=== PATIENT | female | born 1950 | race African-American/Black ===

== ENCOUNTER 2018-03-28 10:45 | Inpatient (IN) | payer OTHER, BC ==
[2018-03-25 17:08] VITALS: BMI 34.4
[2018-03-28] MEDS ORDERED: PNEUMOC 13-VAL CONJ-DIP CRM/PF 0.5 ML DISP.SYRIN IM ONE (12:03)
[2018-03-28 12:54] VITALS: BP 106/53; PULSE 55; TEMP 97.5
== END 2018-03-28 17:30 | disposition home or self-care (01) | DRG 552 ==
LOC: JSAMEDAYSX 10:45
PROVIDERS: ADMIT Orthopaedic Surgery Orthopaedic Surgery of the Spine; ATTEND Orthopaedic Surgery Orthopaedic Surgery of the Spine
DX: M51.37 Other intervertebral disc degeneration, lumbosacral region (principal); Z53.8 Procedure and treatment not carried out for other reasons
CPT/HCPCS: 86850; 86900; 86901

== ENCOUNTER 2018-04-04 06:07 | Inpatient (IN) | payer OTHER, BC ==
[2018-04-04] MEDS ORDERED: HEPARIN NA (PORCINE) 5,000 UNITS/ML 1ML VIAL ONE (07:27)
[2018-04-04] MEDS ORDERED: THROMBIN (BOVINE) 5,000 UNIT VIAL TP ONE ×2 (07:27→09:06)
[2018-04-04] MEDS ORDERED: PROPOFOL 20 ML ONE ×17 (07:55→13:08)
[2018-04-04] MEDS ORDERED: fentaNYL CITRATE 250 MCG/5 ML VIAL ONE (07:55)
[2018-04-04] MEDS ORDERED: SUCCINYLCHOLINE CHLORIDE 200 MG/10 ML VIAL ONE (07:56)
[2018-04-04] MEDS ORDERED: KETAMINE HCL 200 MG/20 ML VIAL ONE ×2 (07:56→11:07)
[2018-04-04] MEDS ORDERED: BUPIVACAINE HCL/PF 0.25% (2.5MG/ML) 10 ML VIAL ONE (08:20)
[2018-04-04] MEDS ORDERED: ePHEDrine SULFATE 50 MG/1 ML AMPULE ONE ×3 (08:36→11:51)
[2018-04-04] MEDS ORDERED: VANCOMYCIN 1,000 MG VIAL (RESTRICTED TO ID ONLY) ONE (08:40)
[2018-04-04] MEDS ORDERED: CLINDAMYCIN PHOSPHATE 600 MG/4 ML VIAL ONE ×2 (08:40→17:55)
[2018-04-04] MEDS ORDERED: VANCOMYCIN 1 GRAM (PRE-DOCKED) 1,000 MG/250 ML BAG IVPB ONE (08:45)
[2018-04-04] MEDS ORDERED: BENZOIN TINCTURE SWABSTICK TP ONE ×2 (08:46→13:55)
[2018-04-04] MEDS: CLINDAMYCIN 900 MG PREMIX BAG IVPB ONE ×2 (08:48→18:00)
[2018-04-04] MEDS ORDERED: ROCURONIUM BROMIDE 50 MG/5 ML VIAL ONE (08:54)
[2018-04-04] MEDS ORDERED: BUPIVACAINE LIPOSOME/PF (EXPAREL) 266 MG/20 ML VIAL IJ ONE (09:08)
[2018-04-04] MEDS ORDERED: BUPIVACAINE LIPOSOME/PF (EXPAREL) 266 MG/20 ML VIAL NR ONE (09:08)
[2018-04-04] MEDS ORDERED: DEXAMETHASONE SOD PHOSPHATE 4 MG/1 ML VIAL ONE (09:08)
[2018-04-04] MEDS ORDERED: ONDANSETRON 4 MG/2 ML VIAL ONE (09:08)
[2018-04-04] MEDS ORDERED: BUPIVACAINE HCL/PF 0.25% (2.5MG/ML) 10 ML VIAL IJ ONE (09:36)
[2018-04-04] MEDS ORDERED: GLYCOPYRROLATE 0.2 MG/1 ML VIAL ONE (11:49)
[2018-04-04] MEDS ORDERED: NEOSTIGMINE METHYLSULFATE 0.5 MG/1 ML - 10 ML MDV ONE (11:49)
[2018-04-04] MEDS ORDERED: VASOPRESSIN 20 UNITS/ML VIAL IV ONE (13:00)
--- NOTE | 2018-04-04 13:06 | PN ---
Progress Note (short form) - Note Progress Note: 67F POD #0 s/p: 1. L2, L3, L4, L5, S1 laminectomies 2. L2, L3, L4, L5, S1 osteotomies (facetectomies) 3. L3-L4, L4-L5 Chapman Blank Osteotomies 4. L2-S1 posterior instrumentation 5. L2-S1 posterolateral arthrodesis 6. Partial corpectomy L5 7. L3-L4, L4-L5, L5-S1 posterior lumbar interbody fusion 8. L3-L4, L4-L5, L5-S1 mechanical device 9. Bone allograft 10. Bone autograft 11. Bone marrow aspiration 12. Complex wound closure -Pain control: NO NSAID's. -DVT PPx: -Mechanical only: DK's, SCD's. -Chemical: None. -Incentive spirometry. -PT/OT/Rehab, OOB. -WBAT B/L LE. -NPO until flatus. -Monitor drain output. -Ferrari care; d/c when ambulating. -Post-op Ancef x 2 doses. -No bending, lifting, or twisting for 9-12 months. -Care per ICU & medical hospitalist teams. -Will follow. Junior Hayward MD (Orthopaedic Surgery).
--- NOTE | 2018-04-04 13:08 | OP ---
Operative Note - Note: Operative Date: 04/04/18 Pre-Operative Diagnosis: 1. 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 2. Severe multi-level lumbar spinal stenosis with neurogenic claudication. 3. L4-L5 spondylolisthesis ( anterolisthesis). 5. Sagittal vertical malalignment/imbalance (kyphosis). 6. Neurological decline/weakness. 7. Neurogenic bladder. Operation: 1. L2, L3, L4, L5, S1 laminectomies. 2. L2, L3, L4, L5, S1 osteotomies (facetectomies). 3. L3-L4, L4-L5 Chapman Blank Osteotomies. 4. L2 -S1 posterior instrumentation. 5. L2-S1 posterolateral arthrodesis. 6. L3-L4, L4-L5, L5-S1 posterior lumbar interbody fusion. 7. L5 partial corpectomy. 8. L3-L4, L4-L5, L5-S1 mechanical device. 9. Bone allograft. 10. Bone autograft. 11. Bone marrow aspiration. 12. Complex wound closure Post-Operative Diagnosis: Same as Pre-op Surgeon: Junior Hayward Button Sewer Hand: Krunal Hayward Anesthesiologist/COMPUTER PATTERNMAKER: Cade Terry Anesthesia: General Specimens Removed: L3-L4, L4-L5, L5-S1 discs Estimated Blood Loss (mls): 1,700 Drains & Tubes with Location: 1 x deep HemoVac Blood Volume Replaced (mls): 750 (Cell Saver) Fluid Volume Replaced (mls): 1,650 (Crystalloid) Operative Report Dictated: Yes
[2018-04-04] MEDS ORDERED: ONDANSETRON 4 MG/2 ML VIAL IVPUSH PRN (14:39)
[2018-04-04] MEDS ORDERED: BACITRACIN 15 GM TUBE TOPICAL OINTMENT ONE (14:42)
[2018-04-04] MEDS ORDERED: HYDROmorphone *PCA* 10MG/50ML DISP.SYRIN PCA ONE (15:03)
[2018-04-04] MEDS: ACETAMINOPHEN 1000 MG/100 ML VIAL (NON FORMULARY) IVPB SCH ×2 (15:30→22:55)
[2018-04-04] MEDS ORDERED: ACETAMINOPHEN INJECTION 100 ML IVPB ONE (16:31)
--- NOTE | 2018-04-04 17:45 | OP ---
DATE OF OPERATION: 04/04/2018 SURGEON: Junior Hayward MD CONTRACTING MANAGER: Krunal Hayward MD PREOPERATIVE DIAGNOSES: 1. 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 2. Severe multi-level lumbar spinal stenosis with neurogenic claudication. 3. L4-L5 spondylolisthesis (anterolisthesis). 4. Sagittal vertical malalignment/imbalance (kyphosis). 5. Neurological decline/weakness. POSTOPERATIVE DIAGNOSES: 1. 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 2. Severe multi-level lumbar spinal stenosis with neurogenic claudication. 3. L4-L5 spondylolisthesis (anterolisthesis). 4. Sagittal vertical malalignment/imbalance (kyphosis). 5. Neurological decline/weakness. OPERATION PERFORMED: 1. L2, L3, L4, L5, S1 laminectomies. 2. L2, L3, L4, L5, S1 osteotomies (facetectomies). 3. L3-L4, L4-L5 Chapman Blank Osteotomies. 4. L2-S1 posterior instrumentation. 5. L2-S1 posterolateral arthrodesis. 6. L3-L4, L4-L5, L5-S1 posterior lumbar interbody fusion. 7. L5 partial corpectomy. 8. L3-L4, L4-L5, L5-S1 mechanical device. 9. Bone allograft. 10. Bone autograft. 11. Bone marrow aspiration. 12. Complex wound closure. 13. Intra-operative neuromonitoring. 14. Intra-operative biplanar fluoroscopy. ANESTHESIA: General. ANTIBIOTICS GIVEN: One g of vancomycin prep, 900 mg of clindamycin. OPERATION DETAILS: Patient correctly identified, brought to the operating room, placed prone on Tayo table. Lumbar spine was prepped in routine manner with Betadine scrub solution, wiped with alcohol, DuraPrep applied, a window drape applied, and timeout was called. Imaging was available for intraoperative evaluation. I placed a tilt as possible to keep the hips in full extension, and all bony prominences were appropriately padded. In the prone position, a midline incision was utilized from L1 to S1. The dissection as taken subperiosteally down the spinous process, over the lamina, over the facet joints which were markedly hypertrophic, out to the transverse processes stripping the muscle off the transverse processes exposing the ala of the sacrum both left and right side fully. Once this had been performed, lateral fluoroscopic x-ray verified the levels as well as use of anatomical guidelines. To start the laminectomy was performed by simply resecting the spinous process and lamina using [place] judith as well as [place] rongeurs. Number 4, 5, and 6 [place] rongeurs helped create a central pathway from S1 right up to L2. Once this had been performed and the lamina removed from the midsection of the pars interarticularis to the inferior aspect of each facet joint, osteotomes were utilized to longitudinally incise each of these bony landmarks from L2 right down to S1. This enabled imploding of the inferior facet complex inwards removing it for bone graft purposes and gave easy access to the central canal and recess components of the canal in order to facilitate complete undercutting superior fasciectomy due to, and what was apparent, very severe stenosis. Once this had been performed, the decompression now widely performed and without any complication. The interbody spaces of L3-4, 4-5, and 5-1 were treated in exactly the same manner as follows , the dura was gently retracted, epidural veins were cauterized with bipolar Bovie. Each annulus was subjected to an elliptical annulotomy and then once this was performed, using the appropriate shaving devices, nathaly measures to L3-4 was to size 11 to receive a pressfitted 40 length spacer measuring 12 mm at L4-5 and L5-S1. The identical measurements of a shaving to size 13 and then inserting a 40 length cage at each level sequentially, thus 3 cages in total, these measuring 13 mm with shaving to size 12 thus pressfitting all cages appropriately. Prior to the insertion of each cage, the bone that was harvested from posterior elements were morselized in [place] and packed into the interbody space thus completing anterior arthrodesis at L3-4, 4-5, and 5-1. Once this had been performed, at that point, it must be noted that these components of the operation, the interbody cages were performed by Krunal Hayward MD. He provided from the left hand side of the table resection of each disk and the interbody cages and bone grafting appropriately. The pedicles of L2, 3 , 4, 5, and S1 were then inserted using anatomical guidelines as well as biplane fluoroscopy to help guide the screws. Each screw measured 6 x 45, except the sacrum and these were 7.5 x 40. Each screw was tested with neuromonitoring and found to be completely within the safe parameters appropriately. Once this had been checked , the rods were contoured onto the actual screw heads. The rods measured 110 mm, and the caps for each Capture screw head was utilized to rigidly fix the rods to the actual screws. We utilized the appropriate torque device to tighten the screws appropriately. On Crosslink then applied which measured 50 mm. Once the instrumentation had been completed, and the retractors were once again removed, the tissue was gently retracted off the L2, 3, 4, 5, and S1 interspinous space and the left and right hand sides were packed with bone from the combination of autologous as well as allograft bone appropriately. Bone marrow aspirate concentrate was harvested from the left posterior ileum, that is 120 mL, which was spun down for the CD34 osteoprogenitor & hemotopoetic stem cells and mixed with bone graft appropriately. We utilized strips of demineralized strips accordingly. Wounds were thoroughly lavaged throughout. Retractors were repeatedly released every 15-20 minutes, and muscle gently massaged. At the end of the procedure, fragmented muscle was resected using Kerr scissors and pickups. At the end of this, the neuromonitoring remained stable throughout the procedure, and there were no complications. Closure was as follows, this being a complex wound closure with 4 layers of muscle 1 Vicryl, fascia 1 Vicryl, subcutaneous 1 and 2-0 Vicryl, skin enterocutaneous Monocryl type suture utilized. This was then followed with the appropriate dressing after Steri- Strips had been placed. BLOOD LOSS: Approximately 1700 mL, 750 mL cell saver blood given back to the patient. OVERALL COMMENT: Operation extremely well. No complications. Postoperative x- rays were excellent. MD BRIELLE Cooper/[id number] MTDD
[2018-04-04] MEDS: LACTATED RINGERS SOLUTION 1,000 ML IV SCH (18:01)
[2018-04-04] MEDS ORDERED: HYDROmorphone *PCA* 10MG/50ML DISP.SYRIN PCA SCH (18:45)
--- NOTE | 2018-04-04 19:06 | CONSULT ---
Consultation: REQUESTING PROVIDER: CONSULT REQUEST: We have been asked to medically evaluate this patient for ( specify). HISTORY OF PRESENT ILLNESS: 67 year old pos op day #0 from lumbar laminectomies, osteotomies, asrthrodesis, L5 partial corpectomy, posterior lumbar interbody, bone allograft, autograft and bone marrow aspiration. REVIEW OF SYSTEMS: CONSTITUTIONAL: Absent: fever, chills, diaphoresis, generalized weakness, malaise, loss of appetite, weight change HEENT: Absent: rhinorrhea, nasal congestion, throat pain, throat swelling, difficulty swallowing, mouth swelling, ear pain, eye pain, visual changes CARDIOVASCULAR: Absent: chest pain, syncope, palpitations, irregular heart rate, lightheadedness , peripheral edema RESPIRATORY: Absent: cough, shortness of breath, dyspnea with exertion, orthopnea, wheezing, stridor, hemoptysis GASTROINTESTINAL: Absent: abdominal pain, abdominal distension, nausea, vomiting, diarrhea, constipation, melena, hematochezia GENITOURINARY: Absent: dysuria, frequency, urgency, hesitancy, hematuria, flank pain, genital pain MUSCULOSKELETAL: Absent: myalgia, arthralgia, joint swelling, back pain, neck pain SKIN: Absent: rash, itching, pallor HEMATOLOGIC/IMMUNOLOGIC: Absent: easy bleeding, easy bruising, lymphadenopathy, frequent infections ENDOCRINE: Absent: unexplained weight gain, unexplained weight loss, heat intolerance, cold intolerance NEUROLOGIC: Absent: headache, focal weakness or paresthesias, dizziness, unsteady gait, seizure, mental status changes, bladder or bowel incontinence PSYCHIATRIC: Absent: anxiety, depression, suicidal or homicidal ideation, hallucinations. PHYSICAL EXAMINATION Vital Signs - 24 hr 04/04/18 04/04/18 04/04/18 06:50 14:57 15:10 Temperature 97.8 F 99.4 F Pulse Rate 54 L 62 62 Respiratory 20 24 H 22 H Rate Blood Pressure 115/45 L 152/107 H 81/61 L O2 Sat by Pulse 97 100 100 Oximetry (%) 04/04/18 04/04/18 04/04/18 15:25 15:40 15:55 Temperature Pulse Rate 61 62 62 Respiratory 18 16 16 Rate Blood Pressure 87/52 L 104/56 L 101/59 L O2 Sat by Pulse 100 100 98 Oximetry (%) 04/04/18 04/04/18 04/04/18 16:10 16:25 16:40 Temperature Pulse Rate 60 58 L 57 L Respiratory 18 20 18 Rate Blood Pressure 96/54 L 111/65 116/69 O2 Sat by Pulse 98 100 99 Oximetry (%) 04/04/18 04/04/18 04/04/18 16:55 17:10 17:25 Temperature Pulse Rate 60 62 58 L Respiratory 18 20 18 Rate Blood Pressure 136/70 153/77 163/73 O2 Sat by Pulse 99 100 100 Oximetry (%) 04/04/18 04/04/18 04/04/18 17:40 17:50 18:05 Temperature 97.8 F Pulse Rate 58 L 58 L 58 L Respiratory 18 16 16 Rate Blood Pressure 159/85 160/87 158/85 O2 Sat by Pulse 100 100 Oximetry (%) 04/04/18 18:13 Temperature 97.8 F Pulse Rate 58 L Respiratory 15 Rate Blood Pressure 134/92 O2 Sat by Pulse Oximetry (%) GENERAL: lethargic HEAD: Normal with no signs of trauma. EYES: PERRLA EARS, NOSE, THROAT: dry mucous membranes. NECK: Normal range of motion LUNGS: Breath sounds equal, clear to auscultation bilaterally. No wheezes, and no crackles. No accessory muscle use. HEART: Regular rate and rhythm, normal S1 and S2 without murmur, rub or gallop. UPPER EXTREMITIES: 2+ pulses, warm, well-perfused. No cyanosis. No clubbing. Cap refill <2 seconds. No peripheral edema. LOWER EXTREMITIES: 2+ pulses, warm, well-perfused. No calf tenderness. No peripheral edema. SKIN: Warm, dry, normal turgor, no rashes or lesions noted. Laboratory Results - last 24 hr 04/04/18 06:15 Blood Type A POSITIVE Antibody Screen Negative Active Medications Generic Name Dose Route Start Last Admin Trade Name Freq PRN Reason Stop Dose Admin Acetaminophen 1,000 mg 04/04/18 15:00 04/04/18 15:30 Ofirmev Injection - IVPB 04/06/18 07:01 1,000 mg Q8H JULIO Administration Carvedilol 6.25 mg 04/04/18 22:00 Coreg - PO BID JULIO Hydromorphone HCl 0 mg 04/04/18 18:45 Dilaudid Director Trial - PEARL MAKER 04/11/18 18:40 PEARL MAKER JULIO Protocol Lactated Ringer's 1,000 mls @ 125 mls/hr 04/04/18 15:00 04/04/18 18:01 Lactated Ringers Solution IV 0 mls ASDIR JULIO Administration Clindamycin Phosphate 900 mg in 50 mls @ 100 mls/hr 04/04/18 16:45 Cleocin 900 Mg Premix Ivpb - IVPB 04/05/18 05:14 Q6H JULIO Protocol Levothyroxine Sodium 100 mcg 04/05/18 07:00 Synthroid - PO DAILY@0700 JULIO Lisinopril 2.5 mg 04/05/18 10:00 Prinivil PO DAILY JULIO Ondansetron HCl 4 mg 04/04/18 14:39 Zofran Injection IVPUSH Q6H PRN NAUSEA AND/OR VOMITING ASSESSMENT/PLAN: 67 year old pos op day #0 from lumbar laminectomies, osteotomies, asrthrodesis, L5 partial corpectomy, posterior lumbar interbody, bone allograft, autograft and bone marrow aspiration. Pulm - Incentive spirometry ID - Ancef x 2 doses post op F/E/N - NPO until flatus - monitor drain output - christianson to be d/c when ambulating - PT/OT/Rehab Pain control: NO NSAID's DVT PPx: SCDs Dispo: We will continue to follow the patient. Thank you for this consultative opportunity. Visit type - Emergency Visit Emergency Visit: No - New Patient This patient is new to me today: No - Critical Care Critical Care patient: No
[2018-04-04] MEDS: CLINDAMYCIN 900 MG PREMIX IVPB 900 MG/50 ML BAG IVPB SCH ×2 (22:50→22:57)
[2018-04-04] MEDS: CARVEDILOL 6.25 MG TABLET (FP) PO SCH (22:58)
[2018-04-05] MEDS: CLINDAMYCIN 900 MG PREMIX IVPB 900 MG/50 ML BAG IVPB SCH (05:20)
[2018-04-05 06:18] LABS: HEMATOCRIT 34.2 % (32.4-45.2); HEMOGLOBIN 11.3 GM/dL (10.7-15.3); MCH 30.8 pg (25.7-33.7); MCHC 33.1 g/dl (32.0-36.0); MEAN CELL VOLUME 92.9 fl (80-96); PLATELET COUNT 118 K/MM3 (134-434); RBC 3.69 M/mm3 (3.60-5.2); RDW 13.8 % (11.6-15.6); WHITE BLOOD COUNT 14.2 K/mm3 (4.0-10.0)
[2018-04-05 06:29] LABS: ANION GAP 6 MMOL/L (8-16); BLOOD UREA NITROGEN 14 mg/dL (7-18); CALCIUM 7.2 mg/dL (8.5-10.1); CHLORIDE 109 mmol/L (98-107); CO2 22 mmol/L (21-32); CREATININE 0.9 mg/dL (0.55-1.3); GLUCOSE,RANDOM 112 mg/dL (74-106); POTASSIUM 4.6 mmol/L (3.5-5.1); SODIUM 138 mmol/L (136-145)
[2018-04-05] MEDS: LEVOTHYROXINE NA 100 MCG TABLET (FP) PO SCH (06:35)
[2018-04-05] MEDS: LACTATED RINGERS SOLUTION 1,000 ML IV SCH ×3 (06:36→18:23)
[2018-04-05] MEDS: ACETAMINOPHEN 1000 MG/100 ML VIAL (NON FORMULARY) IVPB SCH ×3 (08:25→22:47)
--- NOTE | 2018-04-05 08:49 | PN ---
Physical Exam: SUBJECTIVE: Patient seen and examined in the ICU. awake, lethargic. speech slow likely secondary to side effects of dilaudid. OBJECTIVE: hypotensive 80s/50s Vital Signs Period Temp Pulse Resp BP Sys/Finney Pulse Ox Last 24 Hr 97.8 F-99.4 F 55-74 14-24 81-163/52-107 2-100 GENERAL: The patient is awake, in no acute distress. HEAD: Normal with no signs of trauma. EYES: PERRL, extraocular movements intact, sclera anicteric, conjunctiva clear. No ptosis. ENT: Ears normal, nares patent, oropharynx clear without exudates, moist mucous membranes. NECK: Trachea midline, full range of motion, supple. LUNGS: Breath sounds equal, clear to auscultation anteriorly HEART: Regular rate and rhythm, 70s ABDOMEN: Soft, nontender, nondistended, normoactive bowel sounds EXTREMITIES: no edema NEUROLOGICAL:slow speech PSYCH: Normal mood, normal affect. SKIN: biateral knee surgical scars Laboratory Results - last 24 hr 04/05/18 04/05/18 05:30 05:30 WBC 14.2 H RBC 3.69 Hgb 11.3 Hct 34.2 MCV 92.9 MCH 30.8 MCHC 33.1 RDW 13.8 Plt Count 118 L MPV 9.0 Sodium 138 Potassium 4.6 Chloride 109 H Carbon Dioxide 22 Anion Gap 6 L BUN 14 Creatinine 0.9 Creat Clearance w eGFR > 60 Random Glucose 112 H Calcium 7.2 L Active Medications Generic Name Dose Route Start Last Admin Trade Name Freq PRN Reason Stop Dose Admin Acetaminophen 1,000 mg 04/04/18 15:00 04/05/18 08:25 Ofirmev Injection - IVPB 04/06/18 07:01 1,000 mg Q8H JULIO Administration Carvedilol 6.25 mg 04/04/18 22:00 04/04/18 22:58 Coreg - PO 6.25 mg BID JULIO Administration Hydromorphone HCl 0 mg 04/04/18 18:45 04/04/18 22:51 Dilaudid Systems Admin - RUBBER BOOTS AND SHOES REPAIRER 04/11/18 18:40 Not Given RUBBER BOOTS AND SHOES REPAIRER JULIO Protocol Lactated Ringer's 1,000 mls @ 125 mls/hr 04/04/18 15:00 04/05/18 06:36 Lactated Ringers Solution IV 125 mls/hr ASDIR JULIO Administration Levothyroxine Sodium 100 mcg 04/05/18 07:00 04/05/18 06:35 Synthroid - PO 100 mcg DAILY@0700 JULIO Administration Lisinopril 2.5 mg 04/05/18 10:00 Prinivil PO DAILY JULIO Ondansetron HCl 4 mg 04/04/18 14:39 Zofran Injection IVPUSH Q6H PRN NAUSEA AND/OR VOMITING ASSESSMENT/PLAN: Patient is a 67 year old patient who is post op day #1 s/p lumbar laminectomies , osteotomies, asrthrodesis, L5 partial corpectomy, posterior lumbar interbody, bone allograft, autograft and bone marrow aspiration. Her past medical history (per her paper chart) is noted as:. hypothyroidism h/o thyroidectomy ischemic cardiomyopathy CHF htn hyperlipidemia COPD Hepatitis C Hepatitis DC with KAREN and stent placement Bilateral knee replacement ----- Surgery: POD #1 s/p lumbar laminectomies, osteotomies, asrthrodesis, L5 partial corpectomy, posterior lumbar interbody, bone allograft, autograft and bone marrow aspiration. Monitor in ICU post op incentive spirometer dilaudid prn per anethesia, consider titrating off to oral when tolerating diet- avoid nsaids chest xray today pending read initiate bowel regimen physical therapy when cleared by surgery d/c christianson when ambulating, then voiding trial monitor drain output, daily cbc fen LR @ 125cc/hr monitor electrolytes npo until flatus Visit type - Emergency Visit Emergency Visit: Yes ED Registration Date: 04/04/18 Care time: The patient presented to the Emergency Department on the above date and was hospitalized for further evaluation of their emergent condition. - New Patient This patient is new to me today: Yes Date on this admission: 04/05/18 - Critical Care Critical Care patient: No - Discharge Referral Referred to [facility] Med P.C.: No
[2018-04-05] MEDS ORDERED: SODIUM CHLORIDE 250 ML IV STA (08:59)
[2018-04-05] MEDS: CARVEDILOL 6.25 MG TABLET (FP) PO SCH ×2 (09:02→22:46)
[2018-04-05] MEDS: LISINOPRIL 5 MG TABLET (FP) PO SCH (09:02)
--- NOTE | 2018-04-05 13:22 | PN ---
Teaching Attending Note Name of Resident: Colette Marlow ATTENDING PHYSICIAN STATEMENT I saw and evaluated the patient. I reviewed the resident's note and discussed the case with the resident. I agree with the resident's findings and plan as documented. SUBJECTIVE: Pt seen and examined in the ICU. Pain controlled. +flatus. No nausea or vomiting. No fevers or chills. Drain with serosanguinous fluid. OBJECTIVE: Vital Signs Period Temp Pulse Resp BP Sys/Finney Pulse Ox Last 24 Hr 97.4 F-99.4 F 55-78 14-24 78-163/52-111 2-100 Intake & Output 04/02/18 04/03/18 04/04/18 04/05/18 23:59 23:59 23:59 23:59 Intake Total 5100 1600 Output Total 2850 1440 Balance 2250 160 Gen: NAD at rest Heart: RRR Lung: decreased breath sounds at the bases Abd: soft, nontender Ext: no edema CBC, BMP 04/05/18 05:30 04/05/18 05:30 Active Medications Acetaminophen (Ofirmev Injection -) 1,000 mg IVPB Q8H [facility] Stop: 04/06/18 07:01 Last Admin: 04/05/18 08:25 Dose: 1,000 mg Carvedilol (Coreg -) 6.25 mg PO BID [facility] Last Admin: 04/05/18 09:02 Dose: Not Given Hydromorphone HCl (Dilaudid Surgical Asst -) 0 mg STAVE MACHINE TENDER STAVE MACHINE TENDER [facility]; Protocol Stop: 04/11/18 18:40 Last Admin: 04/04/18 22:51 Dose: Not Given Lactated Ringer's (Lactated Ringers Solution) 1,000 mls @ 125 mls/hr IV ASDIR [facility] Last Admin: 04/05/18 11:10 Dose: 125 mls/hr Levothyroxine Sodium (Synthroid -) 100 mcg PO DAILY@0700 [facility] Last Admin: 04/05/18 06:35 Dose: 100 mcg Lisinopril (Prinivil) 2.5 mg PO DAILY [facility] Last Admin: 04/05/18 09:02 Dose: Not Given Ondansetron HCl (Zofran Injection) 4 mg IVPUSH Q6H PRN PRN Reason: NAUSEA AND/OR VOMITING ASSESSMENT AND PLAN: Lumbar Spinal Stenosis with Neurogenic Claudication s/p L2-S1 Laminectomies/Osteotomies/PLIF HTN COPD CAD s/p stent CHF Hypothyroidism - pain control - incentive spirometry - bowel regimen - monitor drain output - start clears - d/c christianson when OOB - rehab/PT - DVT prophylaxis
--- NOTE | 2018-04-05 13:58 | PN ---
Physical Exam: SUBJECTIVE: Patient seen and examined Lethargic, confused, able to answer questions OBJECTIVE: Vital Signs Period Temp Pulse Resp BP Sys/Finney Pulse Ox Last 24 Hr 97.4 F-99.4 F 55-78 14-24 78-163/52-111 2-100 GENERAL: The patient is lethargic and confused HEAD: Normal with no signs of trauma. EYES: PERRL, extraocular movements intact, sclera anicteric, conjunctiva clear. No ptosis. ENT: moist mucous membranes. NECK: Trachea midline, full range of motion, supple. LUNGS: Breath sounds equal, clear to auscultation bilaterally, no wheezes, no crackles, no accessory muscle use. HEART: Regular rate and rhythm, S1, S2 without murmur, rub or gallop. ABDOMEN: Soft, nontender, nondistended, normoactive bowel sounds, no guarding, no rebound, no hepatosplenomegaly, no masses. EXTREMITIES: 2+ pulses, warm, well-perfused, no edema. NEUROLOGICAL: lethargic and confused appearing SKIN: Warm, dry, normal turgor, no rashes or lesions noted Laboratory Results - last 24 hr 04/05/18 04/05/18 05:30 05:30 WBC 14.2 H RBC 3.69 Hgb 11.3 Hct 34.2 MCV 92.9 MCH 30.8 MCHC 33.1 RDW 13.8 Plt Count 118 L MPV 9.0 Sodium 138 Potassium 4.6 Chloride 109 H Carbon Dioxide 22 Anion Gap 6 L BUN 14 Creatinine 0.9 Creat Clearance w eGFR > 60 Random Glucose 112 H Calcium 7.2 L Active Medications Generic Name Dose Route Start Last Admin Trade Name Sam PRN Reason Stop Dose Admin Acetaminophen 1,000 mg 04/04/18 15:00 04/05/18 08:25 Ofirmev Injection - IVPB 04/06/18 07:01 1,000 mg Q8H JULIO Administration Carvedilol 6.25 mg 04/04/18 22:00 04/05/18 09:02 Coreg - PO Not Given BID JULIO Hydromorphone HCl 0 mg 04/04/18 18:45 04/04/18 22:51 Dilaudid Cook Fry - DIRECTOR OF MANAGED SERVICES 04/11/18 18:40 Not Given DIRECTOR OF MANAGED SERVICES [facility] Protocol Lactated Ringer's 1,000 mls @ 125 mls/hr 04/04/18 15:00 04/05/18 11:10 Lactated Ringers Solution IV 125 mls/hr ASDIR JULIO Administration Levothyroxine Sodium 100 mcg 04/05/18 07:00 04/05/18 06:35 Synthroid - PO 100 mcg DAILY@0700 JULIO Administration Lisinopril 2.5 mg 04/05/18 10:00 04/05/18 09:02 Prinivil PO Not Given DAILY JULIO Ondansetron HCl 4 mg 04/04/18 14:39 Zofran Injection IVPUSH Q6H PRN NAUSEA AND/OR VOMITING ASSESSMENT/PLAN: 67 year old pos op day #1 from lumbar laminectomies, osteotomies, asrthrodesis, L5 partial corpectomy, posterior lumbar interbody, bone allograft, autograft and bone marrow aspiration. PMHX hypothyroidism, h/o thyroidectomy, ischemic cardiomyopathy, CHF, htn, hyperlipidemia, COPD, Hepatitis C, Hepatitis, [place] with KAREN and stent placement, Bilateral knee replacement Pulm - Incentive spirometry - CXR daily F/E/N - start clear liquid diet advance as tolerated - monitor drain output - christianson to be d/c when ambulating - PT/OT/Rehab Pain control - avoid NSAIDs - Dilaudid DIRECTOR OF MANAGED SERVICES DVT PPx: SCDs Dispo: continue ICU monitoring Visit type - Emergency Visit Emergency Visit: No - New Patient This patient is new to me today: No - Critical Care Critical Care patient: No
--- NOTE | 2018-04-05 15:11 | PN ---
Progress Note (short form) - Note Progress Note: Patient discussed with Dr. Hayward. Recommend holding opioid medications for now. Hold supplemental oxygen and to send ABG for O2 < 93% CBC, CMP, Mg, Phos sent now.
[2018-04-05 16:49] LABS: ARTERIAL BLD GAS O2 SATURATION 87.9 % (90-98.9); ARTERIAL BLOOD GAS BASE EXCESS 0.4 meq/l (-2-2); ARTERIAL BLOOD GAS PCO2 33.4 mmHg (35-45); ARTERIAL BLOOD GAS pH 7.46 (7.35-7.45)
[2018-04-05 16:59] LABS: ALLENS TEST POSITIVE
--- NOTE | 2018-04-05 19:55 | PN ---
Progress Note (short form) - Note Progress Note: Somnolescent Appearsorientated. CVS Stable RESP endobroncial secretion ABD Soft minimal distension. No flatus. Neuro Fully intact MSkeletal Bandage dry Drain in situ LAB Increased WCC PLAN Pain Mx titrated to Po2 PT Mobilize Keep NPO until bowel sounds return Continue IV fluids
[2018-04-06] MEDS ORDERED: ACETAMINOPHEN 325 MG TABLET (FP) PO PRN (02:10)
[2018-04-06] MEDS: oxyCODONE HCL 5 MG TABLET PO PRN ×2 (02:35→10:00)
[2018-04-06] MEDS: ACETAMINOPHEN 1000 MG/100 ML VIAL (NON FORMULARY) IVPB SCH (06:29)
[2018-04-06] MEDS: LEVOTHYROXINE NA 100 MCG TABLET (FP) PO SCH (06:30)
[2018-04-06 06:35] LABS: BASO % 0.2 % (0-2.0); HEMATOCRIT 32.9 % (32.4-45.2); LYMPH % 13.8 % (8-40); MCH 31.2 pg (25.7-33.7); MCHC 33.5 g/dl (32.0-36.0); MEAN CELL VOLUME 93.2 fl (80-96); MEAN PLT VOLUME 9.4 fl (7.5-11.1); MONO % 8.5 % (3.8-10.2); NEUT % 77.5 % (42.8-82.8); PLATELET COUNT 111 K/MM3 (134-434); RBC 3.53 M/mm3 (3.60-5.2); RDW 13.8 % (11.6-15.6); WHITE BLOOD COUNT 17.4 K/mm3 (4.0-10.0)
[2018-04-06 08:06] LABS: ALBUMIN 2.4 g/dl (3.4-5.0); ALK PHOS 72 U/L (45-117); ANION GAP 7 MMOL/L (8-16); BILIRUBIN,TOTAL 1.4 mg/dL (0.2-1); BLOOD UREA NITROGEN 13 mg/dL (7-18); CALCIUM 7.9 mg/dL (8.5-10.1); CHLORIDE 111 mmol/L (98-107); CO2 25 mmol/L (21-32); CREATININE 0.7 mg/dL (0.55-1.3); GLUCOSE,RANDOM 99 mg/dL (74-106); MAGNESIUM 1.8 mg/dL (1.8-2.4); PHOSPHOROUS 2.7 mg/dL (2.5-4.9); POTASSIUM 4.3 mmol/L (3.5-5.1); SGOT/AST 211 U/L (15-37); SGPT/ALT 52 U/L (13-61); SODIUM 143 mmol/L (136-145); TOT PROT 5.7 g/dl (6.4-8.2)
[2018-04-06] MEDS ORDERED: PT OWN MED DRAWER 7, Y5N ONE ×2 (09:52→11:31)
[2018-04-06] MEDS: CARVEDILOL 6.25 MG TABLET (FP) PO SCH ×3 (10:01→21:19)
[2018-04-06] MEDS: POLYETHYLENE GLYCOL 3350 119 GM BTL PO SCH (10:01)
[2018-04-06] MEDS: DOCUSATE SODIUM 100 MG CAPSULE (FP) PO SCH ×3 (10:01→21:19)
[2018-04-06] MEDS: LISINOPRIL 5 MG TABLET (FP) PO SCH ×2 (10:02→11:16)
[2018-04-06] MEDS: NICOTINE 14 MG/24 HOURS TOPICAL PATCH TD SCH (11:32)
--- NOTE | 2018-04-06 12:22 | PN ---
Teaching Attending Note Name of Resident: Colette Marlow ATTENDING PHYSICIAN STATEMENT I saw and evaluated the patient. I reviewed the resident's note and discussed the case with the resident. I agree with the resident's findings and plan as documented. SUBJECTIVE: Pt seen and examined in the ICU. Pain controlled. Tolerating PO. No fevers or chills. No shortness of breath or chest pain. Drain with serosanguinous fluid. OBJECTIVE: Vital Signs Period Temp Pulse Resp BP Sys/Finney Pulse Ox Last 24 Hr 97.4 F-98.9 F 76-99 18-22 95-164/48-98 97-97 Intake & Output 04/03/18 04/04/18 04/05/18 04/06/18 23:59 23:59 23:59 23:59 Intake Total 5100 2850 1350 Output Total 2850 4110 1600 Balance 2250 -1260 -250 Weight 88.768 kg Gen: NAD at rest, drowsy Heart: RRR Lung: decreased breath sounds at the bases Abd: soft, nontender Ext: no edema CBC, BMP 04/06/18 05:30 04/06/18 05:30 Active Medications Acetaminophen (Tylenol -) 325 mg PO Q6H PRN PRN Reason: PAIN LEVEL 1-5 Carvedilol (Coreg -) 6.25 mg PO BID [facility] Last Admin: 04/06/18 11:16 Dose: 6.25 mg Docusate Sodium (Colace -) 100 mg PO TID [facility] Last Admin: 04/06/18 10:01 Dose: 100 mg Hydromorphone HCl (Dilaudid Store Stock Help -) 0 mg REHANGER REHANGER [facility]; Protocol Stop: 04/11/18 18:40 Last Admin: 04/04/18 22:51 Dose: Not Given Lactated Ringer's (Lactated Ringers Solution) 1,000 mls @ 125 mls/hr IV ASDIR [facility] Last Admin: 04/05/18 18:23 Dose: Not Given Levothyroxine Sodium (Synthroid -) 100 mcg PO DAILY@0700 [facility] Last Admin: 04/06/18 06:30 Dose: 100 mcg Lisinopril (Prinivil) 2.5 mg PO DAILY [facility] Last Admin: 04/06/18 11:16 Dose: 2.5 mg Nicotine (Nicoderm Patch -) 14 mg TD DAILY [facility] Last Admin: 04/06/18 11:32 Dose: 14 mg Ondansetron HCl (Zofran Injection) 4 mg IVPUSH Q6H PRN PRN Reason: NAUSEA AND/OR VOMITING Oxycodone HCl (Roxicodone -) 5 mg PO Q6H PRN PRN Reason: PAIN LEVEL 1-5 Last Admin: 04/06/18 10:00 Dose: 5 mg Polyethylene Glycol (Miralax (For Daily Use) -) 17 gm PO DAILY [facility] Last Admin: 04/06/18 10:01 Dose: 17 grams ASSESSMENT AND PLAN: Lumbar Spinal Stenosis with Neurogenic Claudication s/p L2-S1 Laminectomies/Osteotomies/PLIF HTN COPD CAD s/p stent CHF Hypothyroidism - pain control - incentive spirometry - bowel regimen - monitor drain output - advance diet as tolerated - d/c meghan when OOB - rehab/PT - DVT prophylaxis - disposition per surgery
--- NOTE | 2018-04-06 12:58 | PN ---
Physical Exam: SUBJECTIVE: Patient seen and examined slight improvement in confusion. AOx2. OBJECTIVE: Vital Signs Period Temp Pulse Resp BP Sys/Finney Pulse Ox Last 24 Hr 97.4 F-98.9 F 76-99 18-22 95-164/48-98 97-97 GENERAL: The patient is tired but alert HEAD: Normal with no signs of trauma. EYES: PERRLA ENT: moist mucous membranes. NECK: Trachea midline, full range of motion, supple. LUNGS: Breath sounds equal, clear to auscultation bilaterally, no wheezes, no crackles, no accessory muscle use. HEART: Regular rate and rhythm, S1, S2 without murmur, rub or gallop. ABDOMEN: Soft, nontender, nondistended, normoactive bowel sounds, no guarding, no rebound, no hepatosplenomegaly, no masses. EXTREMITIES: 2+ pulses, warm, well-perfused, no edema. NEUROLOGICAL: Cranial nerves II through XII grossly intact. SKIN: Warm, dry, normal turgor, no rashes or lesions noted Laboratory Results - last 24 hr 04/05/18 04/05/18 04/05/18 16:30 17:30 17:30 WBC Cancelled Corrected WBC (auto) Cancelled RBC Cancelled Hgb Cancelled Hct Cancelled MCV Cancelled MCH Cancelled MCHC Cancelled RDW Cancelled Plt Count Cancelled MPV Cancelled Absolute Neuts (auto) Cancelled Neutrophils % Cancelled Lymphocytes % Cancelled Monocytes % Cancelled Eosinophils % Cancelled Basophils % Cancelled Nucleated RBC % Cancelled Platelet Estimate Cancelled Platelet Comment Cancelled Anticoagulation Therapy No Result Required. Puncture Site Left radial ABG pH 7.46 H ABG pCO2 at Pt Temp 33.4 L ABG pO2 at Pt Temp 53.0 L ABG HCO3 23.4 ABG O2 Sat (Measured) 87.9 L ABG O2 Content 12.9 L ABG Base Excess 0.4 Iain Test Positive O2 Delivery Device No Result Required. Oxygen Flow Rate No Vent Mode No Result Required. Vent Rate No Result Required. Mechanical Rate No Result Required. Pressure Support Vent No Result Required. Sodium Cancelled Potassium Cancelled Chloride Cancelled Carbon Dioxide Cancelled Anion Gap Cancelled BUN Cancelled Creatinine Cancelled Creat Clearance w eGFR Cancelled Random Glucose Cancelled Calcium Cancelled Phosphorus Cancelled Magnesium Cancelled Total Bilirubin Cancelled AST Cancelled ALT Cancelled Alkaline Phosphatase Cancelled Total Protein Cancelled Albumin Cancelled 04/06/18 04/06/18 05:30 05:30 WBC 17.4 H Corrected WBC (auto) RBC 3.53 L Hgb 11.0 Hct 32.9 MCV 93.2 MCH 31.2 MCHC 33.5 RDW 13.8 Plt Count 111 L MPV 9.4 Absolute Neuts (auto) 13.5 H Neutrophils % 77.5 Lymphocytes % 13.8 Monocytes % 8.5 Eosinophils % 0.0 Basophils % 0.2 Nucleated RBC % 0 Platelet Estimate Platelet Comment Anticoagulation Therapy Puncture Site ABG pH ABG pCO2 at Pt Temp ABG pO2 at Pt Temp ABG HCO3 ABG O2 Sat (Measured) ABG O2 Content ABG Base Excess Iain Test O2 Delivery Device Oxygen Flow Rate Vent Mode Vent Rate Mechanical Rate Pressure Support Vent Sodium 143 Potassium 4.3 Chloride 111 H Carbon Dioxide 25 Anion Gap 7 L BUN 13 Creatinine 0.7 Creat Clearance w eGFR > 60 Random Glucose 99 Calcium 7.9 L Phosphorus 2.7 Magnesium 1.8 Total Bilirubin 1.4 H AST 211 H ALT 52 Alkaline Phosphatase 72 Total Protein 5.7 L Albumin 2.4 L Active Medications Generic Name Dose Route Start Last Admin Trade Name Freq PRN Reason Stop Dose Admin Acetaminophen 325 mg 04/06/18 02:10 Tylenol - PO Q6H PRN PAIN LEVEL 1-5 Carvedilol 6.25 mg 04/04/18 22:00 04/06/18 11:16 Coreg - PO 6.25 mg BID JULIO Administration Docusate Sodium 100 mg 04/06/18 08:00 04/06/18 10:01 Colace - PO 100 mg TID JULIO Administration Hydromorphone HCl 0 mg 04/04/18 18:45 04/04/18 22:51 Dilaudid Chemical Preparer - SALVAGE SUPERVISOR 04/11/18 18:40 Not Given SALVAGE SUPERVISOR [facility] Protocol Lactated Ringer's 1,000 mls @ 125 mls/hr 04/04/18 15:00 04/05/18 18:23 Lactated Ringers Solution IV Not Given ASDIR [facility] Levothyroxine Sodium 100 mcg 04/05/18 07:00 04/06/18 06:30 Synthroid - PO 100 mcg DAILY@0700 JULIO Administration Lisinopril 2.5 mg 04/05/18 10:00 04/06/18 11:16 Prinivil PO 2.5 mg DAILY JULIO Administration Nicotine 14 mg 04/06/18 10:00 04/06/18 11:32 Nicoderm Patch - TD 14 mg DAILY JULIO Administration Ondansetron HCl 4 mg 04/04/18 14:39 Zofran Injection IVPUSH Q6H PRN NAUSEA AND/OR VOMITING Oxycodone HCl 5 mg 04/06/18 02:10 04/06/18 10:00 Roxicodone - PO 5 mg Q6H PRN Administration PAIN LEVEL 1-5 Polyethylene Glycol 17 gm 04/06/18 10:00 04/06/18 10:01 Miralax (For Daily Use) - PO 17 grams DAILY JULIO Administration ASSESSMENT/PLAN: 67 year old pos op day #1 from lumbar laminectomies, osteotomies, asrthrodesis, L5 partial corpectomy, posterior lumbar interbody, bone allograft, autograft and bone marrow aspiration. PMHX hypothyroidism, h/o thyroidectomy, ischemic cardiomyopathy, CHF, htn, hyperlipidemia, COPD, Hepatitis C, Hepatitis, [place] with KAREN and stent placement, Bilateral knee replacement Pulm - Incentive spirometry - CXR daily F/E/N - start clear liquid diet advance as tolerated - monitor drain output - christianson to be d/c when ambulating - PT/OT/Rehab Pain control - avoid NSAIDs - Dilaudid SALVAGE SUPERVISOR - Oxycodone 5mg Q6H PRN DVT PPx: SCDs Dispo: continue ICU monitoring Visit type - Emergency Visit Emergency Visit: No - New Patient This patient is new to me today: No - Critical Care Critical Care patient: No
--- NOTE | 2018-04-06 14:51 | CONSULT ---
Admitting History and Physical - Primary Care Physician PCP: Junior Hayward - Admission History of Present Illness: Per EMR: 67 year old pos op day #1 from lumbar laminectomies, osteotomies, asrthrodesis, L5 partial corpectomy, posterior lumbar interbody, bone allograft, autograft and bone marrow aspiration. PMHX hypothyroidism, h/o thyroidectomy, ischemic cardiomyopathy, CHF, htn, hyperlipidemia, COPD, Hepatitis C, Hepatitis, [place] with KAREN and stent placement, Bilateral knee replacement Patient with slurring speech and incoherence on reassessment. CLD currently, will do a swallow evaluation and advance diet to full liquids as tolerated. History Source: Patient, Family Member, Medical Record Limitations to Obtaining History: Clinical Condition - Smoking History Smoking history: Current some day smoker Aproximately how many cigarettes per day: 10 - Alcohol/Substance Use Hx Alcohol Use: No History - Admission Reason For Visit: SPINAL STENOSIS - General Mental Status: Awake and Alert (sleepy but arousable), Able to Follow Commands, Intermittently Confused Attention: Distractible Ability to Follow Directions: Good - Hearing Hearing: Functional Speech Evaluation - Communication Primary Language: PALAUAN Oral Expression Ability: Yes: Mild Impairment - Speech Production Able to Make Needs Known: Yes: WNL Intelligibility: Yes: Mildly Impaired - Speech Characteristics Voice Loudness: Normal Voice Pitch: Yes: Normal Voice Phonatory-based Quality: Yes: Normal Speech Pattern: Impaired Speech Clarity: < 100% Nasal Resonance: Hypernasal Articulation: Yes: Imprecise Rate of Speech: Intact - Language/Auditory Comprehension Follows: Yes: 1 Stage Simple Commands Observation: Able to respond to yes/no queries: Yes, Yes/No Confusion: No, Comprehends Conversational Speech: Yes - Language/Verbal Expression Able to Respond to Simple Queries: Yes: WNL Able to Communicate Wants and Needs: Yes: WNL Functional Communication Status: Yes: WNL - Swallow Evaluation/Bedside Assessment Current Nutritional Intake: Clear Liquids Oral Secretions: Yes: WFL Dentition: Yes: Missing Teeth (lower), Dental Appliance Upper Facial Symmetry at Rest: Symmetrical Facial Symmetry on Retraction: Symmetrical Facial Movement: Controlled Pucker Lips: Normal Smile: Normal Lingual Movement: Normal, Symmetric Lingual Movement Characteristics: Normal Bite Reflex: Present Velopharyngeal Movement: Hypernasality (symmetric elevation, incomplete due to lethargy?) Laryngeal Movement: Labored,delay initiation Labial Seal: WFL Oral Prep Time: Increased A-P Transit: Impaired Pocketing: None Timing of Swallow: Delayed Coughing/Throat Clear: No Change in Voice: No Recommendations - Speech Evaluation, Impression/Plan Impression: Post anaesthesia/pain meds etc. A little confused, speech hypernasal. No assymetry upon examination. Swallow overtly intact, however, intermittent sleepiness, hypernasality, confusion post op. No assymetry. - Dysphagia Impressions/Plan Dysphagia Impressions: Mild Impairment, Risk of Aspiration *Silent aspiration: cannot be R/O at bedside Dysphagia Treatment Plan: Small Bites, Chin Tuck/Down, Facilitative Feeding, Safe Rate, Elevate HOB during feed Recommendations: Other (Feed only when fully awake, upright, concentrating on eating/drinking.) - Recommendations Diet Consistency: Other (Full fluids if not medically contraindicated.) Medication Administration: Whole with water Liquids: Thin Liquids
--- NOTE | 2018-04-06 15:51 | PN ---
Physical Exam: SUBJECTIVE: Patient seen and examined at the bedside. daughter at the bedside. OBJECTIVE: episode of confusion overnight, d/c dilaudid and monitor on only oxycodone 5mg. minimize use of any other narcotics or benzos and monitor mental status. consider head ct if mental status does not improve. Vital Signs Period Temp Pulse Resp BP Sys/Finney Pulse Ox Last 24 Hr 97.9 F-98.9 F 78-99 18-22 104-166/69-98 97-97 GENERAL: The patient in no acute distress. HEAD: Normal with no signs of trauma. EYES: PERRL, extraocular movements intact, sclera anicteric, conjunctiva clear. No ptosis. ENT: Ears normal, nares patent, oropharynx clear without exudates, moist mucous membranes. NECK: Trachea midline, full range of motion, supple. LUNGS: Breath sounds equal, clear to auscultation anteriorly HEART: Regular rate and rhythm, 70s ABDOMEN: Soft, nontender, nondistended, normoactive bowel sounds EXTREMITIES: no edema NEUROLOGICAL:slow speech PSYCH: Normal mood, normal affect. SKIN: bilateral knee surgical scars Laboratory Results - last 24 hr 04/05/18 04/05/18 04/05/18 16:30 17:30 17:30 WBC Cancelled Corrected WBC (auto) Cancelled RBC Cancelled Hgb Cancelled Hct Cancelled MCV Cancelled MCH Cancelled MCHC Cancelled RDW Cancelled Plt Count Cancelled MPV Cancelled Absolute Neuts (auto) Cancelled Neutrophils % Cancelled Lymphocytes % Cancelled Monocytes % Cancelled Eosinophils % Cancelled Basophils % Cancelled Nucleated RBC % Cancelled Platelet Estimate Cancelled Platelet Comment Cancelled Anticoagulation Therapy No Result Required. Puncture Site Left radial ABG pH 7.46 H ABG pCO2 at Pt Temp 33.4 L ABG pO2 at Pt Temp 53.0 L ABG HCO3 23.4 ABG O2 Sat (Measured) 87.9 L ABG O2 Content 12.9 L ABG Base Excess 0.4 Iain Test Positive O2 Delivery Device No Result Required. Oxygen Flow Rate No Vent Mode No Result Required. Vent Rate No Result Required. Mechanical Rate No Result Required. Pressure Support Vent No Result Required. Sodium Cancelled Potassium Cancelled Chloride Cancelled Carbon Dioxide Cancelled Anion Gap Cancelled BUN Cancelled Creatinine Cancelled Creat Clearance w eGFR Cancelled Random Glucose Cancelled Calcium Cancelled Phosphorus Cancelled Magnesium Cancelled Total Bilirubin Cancelled AST Cancelled ALT Cancelled Alkaline Phosphatase Cancelled Total Protein Cancelled Albumin Cancelled 04/06/18 04/06/18 05:30 05:30 WBC 17.4 H Corrected WBC (auto) RBC 3.53 L Hgb 11.0 Hct 32.9 MCV 93.2 MCH 31.2 MCHC 33.5 RDW 13.8 Plt Count 111 L MPV 9.4 Absolute Neuts (auto) 13.5 H Neutrophils % 77.5 Lymphocytes % 13.8 Monocytes % 8.5 Eosinophils % 0.0 Basophils % 0.2 Nucleated RBC % 0 Platelet Estimate Platelet Comment Anticoagulation Therapy Puncture Site ABG pH ABG pCO2 at Pt Temp ABG pO2 at Pt Temp ABG HCO3 ABG O2 Sat (Measured) ABG O2 Content ABG Base Excess Iain Test O2 Delivery Device Oxygen Flow Rate Vent Mode Vent Rate Mechanical Rate Pressure Support Vent Sodium 143 Potassium 4.3 Chloride 111 H Carbon Dioxide 25 Anion Gap 7 L BUN 13 Creatinine 0.7 Creat Clearance w eGFR > 60 Random Glucose 99 Calcium 7.9 L Phosphorus 2.7 Magnesium 1.8 Total Bilirubin 1.4 H AST 211 H ALT 52 Alkaline Phosphatase 72 Total Protein 5.7 L Albumin 2.4 L Active Medications Generic Name Dose Route Start Last Admin Trade Name Freq PRN Reason Stop Dose Admin Acetaminophen 325 mg 04/06/18 02:10 Tylenol - PO Q6H PRN PAIN LEVEL 1-5 Carvedilol 6.25 mg 04/04/18 22:00 04/06/18 11:16 Coreg - PO 6.25 mg BID JULIO Administration Docusate Sodium 100 mg 04/06/18 08:00 04/06/18 15:20 Colace - PO 100 mg TID JULIO Administration Hydromorphone HCl 0 mg 04/04/18 18:45 04/04/18 22:51 Dilaudid Food Service Driver - CLIENT DELIVERY SPECIALIST 04/11/18 18:40 Not Given CLIENT DELIVERY SPECIALIST [facility] Protocol Lactated Ringer's 1,000 mls @ 125 mls/hr 04/04/18 15:00 04/05/18 18:23 Lactated Ringers Solution IV Not Given ASDIR JULIO Levothyroxine Sodium 100 mcg 04/05/18 07:00 04/06/18 06:30 Synthroid - PO 100 mcg DAILY@0700 JULIO Administration Lisinopril 2.5 mg 04/05/18 10:00 04/06/18 11:16 Prinivil PO 2.5 mg DAILY JULIO Administration Nicotine 14 mg 04/06/18 10:00 04/06/18 11:32 Nicoderm Patch - TD 14 mg DAILY JULIO Administration Ondansetron HCl 4 mg 04/04/18 14:39 Zofran Injection IVPUSH Q6H PRN NAUSEA AND/OR VOMITING Oxycodone HCl 5 mg 04/06/18 02:10 04/06/18 10:00 Roxicodone - PO 5 mg Q6H PRN Administration PAIN LEVEL 1-5 Polyethylene Glycol 17 gm 04/06/18 10:00 04/06/18 10:01 Miralax (For Daily Use) - PO 17 grams DAILY JULIO Administration ASSESSMENT/PLAN: Patient is a 67 year old patient who is post op day #2 s/p lumbar laminectomies , osteotomies, asrthrodesis, L5 partial corpectomy, posterior lumbar interbody, bone allograft, autograft and bone marrow aspiration. Her past medical history (per her paper chart) is noted as:. hypothyroidism h/o thyroidectomy ischemic cardiomyopathy CHF htn hyperlipidemia COPD Hepatitis C Hepatitis [place] with KAREN and stent placement Bilateral knee replacement ----- Surgery: POD #2 s/p lumbar laminectomies, osteotomies, asrthrodesis, L5 partial corpectomy, posterior lumbar interbody, bone allograft, autograft and bone marrow aspiration. Monitor in ICU post op. vitals signs improved incentive spirometer will d/c dilaudid as patient is on oxycodone chest xray noted initiate bowel regimen physical therapy when cleared by surgery d/c christianson when ambulating, then voiding trial monitor drain output, daily cbc Psyche AMS likely secondary to narcotic medications episodes of confusion vs delirium overnight will order head ct fen LR @ 125cc/hr monitor electrolytes full liquid diet Visit type - Emergency Visit Emergency Visit: Yes ED Registration Date: 04/04/18 Care time: The patient presented to the Emergency Department on the above date and was hospitalized for further evaluation of their emergent condition. - New Patient This patient is new to me today: No - Critical Care Critical Care patient: Yes Total Critical Care Time (in minutes): 45 Critical Care Statement: The care of this patient involved high complexity decision making to prevent further life threatening deterioration of the patient 's condition and/or to evaluate & treat vital organ system(s) failure or risk of failure. - Discharge Referral Referred to [facility] Med P.C.: No
[2018-04-06] MEDS: LACTATED RINGERS SOLUTION 1,000 ML IV SCH (18:18)
[2018-04-06 20:37] LABS: URINE APPEARANCE CLEAR; URINE BILIRUBIN NEGATIVE (<2.0 mg/dL); URINE COLOR LTYELLOW; URINE GLUCOSE (UA) NEGATIVE (NEGATIVE); URINE KETONE NEGATIVE (NEGATIVE); URINE LEUK ESTERASE NEGATIVE (NEGATIVE); URINE NITRITE NEGATIVE (NEGATIVE); URINE PROTEIN NEGATIVE (NEGATIVE); URINE UROBILINOGEN NEGATIVE mg/dL (0.2-1.0)
[2018-04-07] MEDS: DOCUSATE SODIUM 100 MG CAPSULE (FP) PO SCH ×3 (05:50→21:15)
[2018-04-07 06:07] LABS: BASO % 0.3 % (0-2.0); EOS % 0.2 % (0-4.5); HEMATOCRIT 31.3 % (32.4-45.2); HEMOGLOBIN 10.3 GM/dL (10.7-15.3); LYMPH % 19.1 % (8-40); MCH 30.7 pg (25.7-33.7); MCHC 32.8 g/dl (32.0-36.0); MEAN CELL VOLUME 93.9 fl (80-96); MEAN PLT VOLUME 9.3 fl (7.5-11.1); MONO % 11.2 % (3.8-10.2); NEUT % 69.2 % (42.8-82.8); PLATELET COUNT 122 K/MM3 (134-434); RBC 3.33 M/mm3 (3.60-5.2); RDW 13.9 % (11.6-15.6); WHITE BLOOD COUNT 14.9 K/mm3 (4.0-10.0)
[2018-04-07] MEDS: LEVOTHYROXINE NA 100 MCG TABLET (FP) PO SCH (06:43)
[2018-04-07 06:49] LABS: ALBUMIN 2.3 g/dl (3.4-5.0); ALK PHOS 62 U/L (45-117); ANION GAP 7 MMOL/L (8-16); BILIRUBIN,TOTAL 1.2 mg/dL (0.2-1); BLOOD UREA NITROGEN 9 mg/dL (7-18); CALCIUM 7.9 mg/dL (8.5-10.1); CHLORIDE 110 mmol/L (98-107); CO2 24 mmol/L (21-32); CREATININE 0.6 mg/dL (0.55-1.3); GLUCOSE,RANDOM 108 mg/dL (74-106); MAGNESIUM 1.9 mg/dL (1.8-2.4); PHOSPHOROUS 3.2 mg/dL (2.5-4.9); POTASSIUM 4.1 mmol/L (3.5-5.1); SGOT/AST 105 U/L (15-37); SGPT/ALT 42 U/L (13-61); SODIUM 142 mmol/L (136-145); TOT PROT 5.7 g/dl (6.4-8.2)
[2018-04-07] MEDS: ACETAMINOPHEN 1000 MG/100 ML VIAL (NON FORMULARY) IVPB PRN ×2 (09:15→16:27)
--- NOTE | 2018-04-07 09:26 | PN ---
Progress Note (short form) - Note Progress Note: asked by Dr Hayward to pull Hemavac drain on patient. Hemavac drain removed with tip fully intact and scant venkatesh bloody drainage in vac. Drain site clean and dry with no active bleeding. Dressing c/d/i. Patient tolerated the procedure.
[2018-04-07] MEDS ORDERED: PT OWN MED DRAWER 7, Y5N ONE (09:48)
[2018-04-07] MEDS: CARVEDILOL 6.25 MG TABLET (FP) PO SCH ×2 (10:09→21:15)
[2018-04-07] MEDS: NICOTINE 14 MG/24 HOURS TOPICAL PATCH TD SCH (10:09)
[2018-04-07] MEDS: LISINOPRIL 5 MG TABLET (FP) PO SCH (10:09)
[2018-04-07] MEDS: POLYETHYLENE GLYCOL 3350 119 GM BTL PO SCH (10:46)
[2018-04-07] MEDS ORDERED: HEMOQUE TEST 1 EACH EACH ONE (11:12)
--- NOTE | 2018-04-07 11:16 | PN ---
Progress Note, COMMISSION AGENT [employer] - Note Progress Note: On full fluids with reported good tolerance. Selected Entries 04/06/18 04/06/18 04/06/18 02:00 10:00 10:27 Breakfast 100% Lunch Supper Temperature 98.9 F 98 F 04/06/18 04/06/18 04/06/18 13:38 16:00 18:00 Breakfast Lunch 75% Supper Temperature 98.2 F 99 F 04/06/18 04/06/18 04/07/18 19:36 22:00 02:00 Breakfast Lunch Supper 25% Temperature 98.2 F 98.4 F 04/07/18 04/07/18 04/07/18 06:00 08:00 08:51 Breakfast 50% Lunch Supper Temperature 98.1 F 98.3 F Laboratory Tests 04/05/18 04/06/18 04/07/18 05:30 05:30 05:30 WBC 14.2 H 17.4 H 14.9 H No longer on pain killers except Tylenol. Verbal, Oriented, occasional errors eg [facility]. Speech improved significantly, still with some articulatory imprecision. Seems intermittently confused to me. Daughter reports she is better, not at baseline.
--- NOTE | 2018-04-07 11:39 | PN ---
Physical Exam: SUBJECTIVE: Patient seen and examined Patient with improved mentation and speech. Drain removed this AM OBJECTIVE: Vital Signs Period Temp Pulse Resp BP Sys/Finney Pulse Ox Last 24 Hr 98.1 F-99 F 79-95 15-30 116-173/77-97 97-97 GENERAL: The patient is awake, alert, and fully oriented, in no acute distress. HEAD: Normal with no signs of trauma. EYES: PERRLA, extraocular movements intact, ENT: moist mucous membranes. NECK: Trachea midline, full range of motion, supple. LUNGS: Breath sounds equal, clear to auscultation bilaterally, no wheezes, no crackles, no accessory muscle use. HEART: Regular rate and rhythm, S1, S2 without murmur, rub or gallop. ABDOMEN: Soft, nontender, nondistended, normoactive bowel sounds, no guarding, no rebound, no hepatosplenomegaly, no masses. EXTREMITIES: 2+ pulses, warm, well-perfused, no edema. NEUROLOGICAL: AOx3 SKIN: Warm, dry, normal turgor, no rashes or lesions noted Laboratory Results - last 24 hr 04/06/18 04/07/18 04/07/18 19:26 05:30 05:30 WBC 14.9 H RBC 3.33 L Hgb 10.3 L Hct 31.3 L MCV 93.9 MCH 30.7 MCHC 32.8 RDW 13.9 Plt Count 122 L MPV 9.3 Absolute Neuts (auto) 10.3 H Neutrophils % 69.2 Lymphocytes % 19.1 D Monocytes % 11.2 H Eosinophils % 0.2 D Basophils % 0.3 Nucleated RBC % 0 Sodium 142 Potassium 4.1 Chloride 110 H Carbon Dioxide 24 Anion Gap 7 L BUN 9 Creatinine 0.6 Creat Clearance w eGFR > 60 Random Glucose 108 H Calcium 7.9 L Phosphorus 3.2 Magnesium 1.9 Total Bilirubin 1.2 H AST 105 H ALT 42 Alkaline Phosphatase 62 Total Protein 5.7 L Albumin 2.3 L Urine Color Ltyellow Urine Appearance Clear Urine pH 8.0 Ur Specific Ruso 1.009 L Urine Protein Negative Urine Glucose (UA) Negative Urine Ketones Negative Urine Blood Negative Urine Nitrite Negative Urine Bilirubin Negative Urine Urobilinogen Negative Ur Leukocyte Esterase Negative Active Medications Generic Name Dose Route Start Last Admin Trade Name Freq PRN Reason Stop Dose Admin Acetaminophen 325 mg 04/06/18 02:10 04/06/18 21:18 Tylenol - PO 325 mg Q6H PRN Administration PAIN LEVEL 1-5 Acetaminophen 1,000 mg 04/07/18 09:00 04/07/18 09:15 Ofirmev Injection - IVPB 1,000 mg Q6H PRN Administration PAIN Carvedilol 6.25 mg 04/04/18 22:00 04/07/18 10:09 Coreg - PO 6.25 mg BID JULIO Administration Docusate Sodium 100 mg 04/06/18 08:00 04/07/18 05:50 Colace - PO 100 mg TID JULIO Administration Lactated Ringer's 1,000 mls @ 125 mls/hr 04/04/18 15:00 04/06/18 18:18 Lactated Ringers Solution IV Not Given ASDIR JULIO Levothyroxine Sodium 100 mcg 04/05/18 07:00 04/07/18 06:43 Synthroid - PO 100 mcg DAILY@0700 JULIO Administration Lisinopril 2.5 mg 04/05/18 10:00 04/07/18 10:09 Prinivil PO 2.5 mg DAILY JUILO Administration Nicotine 14 mg 04/06/18 10:00 04/07/18 10:09 Nicoderm Patch - TD 14 mg DAILY JULIO Administration Ondansetron HCl 4 mg 04/04/18 14:39 Zofran Injection IVPUSH Q6H PRN NAUSEA AND/OR VOMITING Oxycodone HCl 5 mg 04/06/18 02:10 04/06/18 10:00 Roxicodone - PO 5 mg Q6H PRN Administration PAIN LEVEL 1-5 Polyethylene Glycol 17 gm 04/06/18 10:00 04/07/18 10:46 Miralax (For Daily Use) - PO 17 grams DAILY JULIO Administration ASSESSMENT/PLAN: 67 year old pos op day #3 from lumbar laminectomies, osteotomies, asrthrodesis, L5 partial corpectomy, posterior lumbar interbody, bone allograft, autograft and bone marrow aspiration. PMHX hypothyroidism, h/o thyroidectomy, ischemic cardiomyopathy, CHF, htn, hyperlipidemia, COPD, Hepatitis C, Hepatitis, [place] with KAREN and stent placement, Bilateral knee replacement Pulm - Incentive spirometry - CXR daily F/E/N - full liquid diet advance as tolerated - drain d/c - christianson to be d/c when ambulating - PT/OT/Rehab Pain control - avoid NSAIDs - Tylenol PRN DVT PPx: SCDs Dispo: transfer Visit type - Emergency Visit Emergency Visit: No - New Patient This patient is new to me today: No - Critical Care Critical Care patient: No
--- NOTE | 2018-04-07 12:53 | PN ---
Teaching Attending Note Name of Resident: Colette Marlow ATTENDING PHYSICIAN STATEMENT I saw and evaluated the patient. I reviewed the resident's note and discussed the case with the resident. I agree with the resident's findings and plan as documented. SUBJECTIVE: Pt seen and examined in the ICU. Pain controlled. Drain removed. No shortness of breath or chest pain. OBJECTIVE: Vital Signs Period Temp Pulse Resp BP Sys/Finney Pulse Ox Last 24 Hr 98 F-99 F 79-95 15-30 116-173/64-93 97-97 Intake & Output 04/04/18 04/05/18 04/06/18 04/07/18 23:59 23:59 23:59 23:59 Intake Total 5100 2850 2190 100 Output Total 2850 4110 3600 430 Balance 2250 -1260 -1410 -330 Weight 88.451 kg 83.642 kg Gen: NAD at rest Heart: RRR Lung: decreased breath sounds at the bases Abd: soft, nontender Ext: no edema CBC, BMP 04/07/18 05:30 04/07/18 05:30 Active Medications Acetaminophen (Tylenol -) 325 mg PO Q6H PRN PRN Reason: PAIN LEVEL 1-5 Last Admin: 04/06/18 21:18 Dose: 325 mg Acetaminophen (Ofirmev Injection -) 1,000 mg IVPB Q6H PRN PRN Reason: PAIN Last Admin: 04/07/18 09:15 Dose: 1,000 mg Carvedilol (Coreg -) 6.25 mg PO BID [facility] Last Admin: 04/07/18 10:09 Dose: 6.25 mg Docusate Sodium (Colace -) 100 mg PO TID [facility] Last Admin: 04/07/18 05:50 Dose: 100 mg Lactated Ringer's (Lactated Ringers Solution) 1,000 mls @ 125 mls/hr IV ASDIR [facility] Last Admin: 04/06/18 18:18 Dose: Not Given Levothyroxine Sodium (Synthroid -) 100 mcg PO DAILY@0700 [facility] Last Admin: 04/07/18 06:43 Dose: 100 mcg Lisinopril (Prinivil) 2.5 mg PO DAILY [facility] Last Admin: 04/07/18 10:09 Dose: 2.5 mg Nicotine (Nicoderm Patch -) 14 mg TD DAILY [facility] Last Admin: 04/07/18 10:09 Dose: 14 mg Ondansetron HCl (Zofran Injection) 4 mg IVPUSH Q6H PRN PRN Reason: NAUSEA AND/OR VOMITING Oxycodone HCl (Roxicodone -) 5 mg PO Q6H PRN PRN Reason: PAIN LEVEL 1-5 Last Admin: 04/06/18 10:00 Dose: 5 mg Polyethylene Glycol (Miralax (For Daily Use) -) 17 gm PO DAILY JULIO Last Admin: 04/07/18 10:46 Dose: 17 grams ASSESSMENT AND PLAN: Lumbar Spinal Stenosis with Neurogenic Claudication s/p L2-S1 Laminectomies/Osteotomies/PLIF HTN COPD CAD s/p stent CHF Hypothyroidism - pain control - incentive spirometry - bowel regimen - advance diet as tolerated - d/c meghan when OOB - rehab/PT - DVT prophylaxis - can monitor on floor
--- NOTE | 2018-04-07 16:11 | PN ---
Physical Exam: SUBJECTIVE: Patient seen and examined at the bedside. daughter present at bedside and concern over patient's mental status. states her mother's mentation seems "off". Mother with scattered throughts and slurred speech. OBJECTIVE: patient with slurred speech, but much improved since yesterday. slightly confused head ct negative for acute process all current hospital medications reviewed with her daughter including side effects. encourage incentive sprirometer patient is tolerating her diet Vital Signs Period Temp Pulse Resp BP Sys/Finney Pulse Ox Last 24 Hr 98 F-99 F 79-95 15-30 116-167/64-91 97-97 GENERAL: The patient in no acute distress. HEAD: Normal with no signs of trauma. EYES: PERRL, extraocular movements intact, sclera anicteric, conjunctiva clear. No ptosis. ENT: Ears normal, nares patent, oropharynx clear without exudates, moist mucous membranes. NECK: Trachea midline, full range of motion, supple. LUNGS: Breath sounds equal, clear to auscultation anteriorly HEART: Regular rate and rhythm, 70s ABDOMEN: Soft, nontender, nondistended, normoactive bowel sounds EXTREMITIES: no edema NEUROLOGICAL:slow speech PSYCH: Normal mood, normal affect. SKIN: bilateral knee surgical scars Laboratory Results - last 24 hr 04/06/18 04/07/18 04/07/18 19:26 05:30 05:30 WBC 14.9 H RBC 3.33 L Hgb 10.3 L Hct 31.3 L MCV 93.9 MCH 30.7 MCHC 32.8 RDW 13.9 Plt Count 122 L MPV 9.3 Absolute Neuts (auto) 10.3 H Neutrophils % 69.2 Lymphocytes % 19.1 D Monocytes % 11.2 H Eosinophils % 0.2 D Basophils % 0.3 Nucleated RBC % 0 Sodium 142 Potassium 4.1 Chloride 110 H Carbon Dioxide 24 Anion Gap 7 L BUN 9 Creatinine 0.6 Creat Clearance w eGFR > 60 Random Glucose 108 H Calcium 7.9 L Phosphorus 3.2 Magnesium 1.9 Total Bilirubin 1.2 H AST 105 H ALT 42 Alkaline Phosphatase 62 Total Protein 5.7 L Albumin 2.3 L Urine Color Ltyellow Urine Appearance Clear Urine pH 8.0 Ur Specific [place] 1.009 L Urine Protein Negative Urine Glucose (UA) Negative Urine Ketones Negative Urine Blood Negative Urine Nitrite Negative Urine Bilirubin Negative Urine Urobilinogen Negative Ur Leukocyte Esterase Negative Active Medications Generic Name Dose Route Start Last Admin Trade Name Freq PRN Reason Stop Dose Admin Acetaminophen 325 mg 04/06/18 02:10 04/06/18 21:18 Tylenol - PO 325 mg Q6H PRN Administration PAIN LEVEL 1-5 Acetaminophen 1,000 mg 04/07/18 09:00 04/07/18 09:15 Ofirmev Injection - IVPB 1,000 mg Q6H PRN Administration PAIN Carvedilol 6.25 mg 04/04/18 22:00 04/07/18 10:09 Coreg - PO 6.25 mg BID JULIO Administration Docusate Sodium 100 mg 04/06/18 08:00 04/07/18 13:17 Colace - PO 100 mg TID JULIO Administration Lactated Ringer's 1,000 mls @ 125 mls/hr 04/04/18 15:00 04/06/18 18:18 Lactated Ringers Solution IV Not Given ASDIR JULIO Levothyroxine Sodium 100 mcg 04/05/18 07:00 04/07/18 06:43 Synthroid - PO 100 mcg DAILY@0700 JULIO Administration Lisinopril 2.5 mg 04/05/18 10:00 04/07/18 10:09 Prinivil PO 2.5 mg DAILY JULIO Administration Nicotine 14 mg 04/06/18 10:00 04/07/18 10:09 Nicoderm Patch - TD 14 mg DAILY JULIO Administration Ondansetron HCl 4 mg 04/04/18 14:39 Zofran Injection IVPUSH Q6H PRN NAUSEA AND/OR VOMITING Oxycodone HCl 5 mg 04/06/18 02:10 04/06/18 10:00 Roxicodone - PO 5 mg Q6H PRN Administration PAIN LEVEL 1-5 Polyethylene Glycol 17 gm 04/06/18 10:00 04/07/18 10:46 Miralax (For Daily Use) - PO 17 grams DAILY JULIO Administration ASSESSMENT/PLAN: Patient is a 67 year old patient who is post op day #3 s/p lumbar laminectomies , osteotomies, asrthrodesis, L5 partial corpectomy, posterior lumbar interbody, bone allograft, autograft and bone marrow aspiration. Her past medical history (per her paper chart) is noted as:. hypothyroidism h/o thyroidectomy ischemic cardiomyopathy CHF htn hyperlipidemia COPD Hepatitis C [place] with KAREN and stent placement Bilateral knee replacement ----- Surgery: POD #3 s/p lumbar laminectomies, osteotomies, asrthrodesis, L5 partial corpectomy, posterior lumbar interbody, bone allograft, autograft and bone marrow aspiration. Monitor in ICU post op. vitals signs stable incentive spirometer on oxycodone chest xray noted initiate bowel regimen physical therapy d/c christianson, monitor output daily cbc Psyche AMS Acute delirium episodes of confusion vs delirium overnight head ct negative fen LR @ 125cc/hr monitor electrolytes full liquid diet Visit type - Emergency Visit Emergency Visit: Yes ED Registration Date: 04/04/18 Care time: The patient presented to the Emergency Department on the above date and was hospitalized for further evaluation of their emergent condition. - New Patient This patient is new to me today: No - Critical Care Critical Care patient: No - Discharge Referral Referred to [facility] Med P.C.: No
[2018-04-07] MEDS ORDERED: LACTATED RINGERS SOLUTION 1,000 ML IV SCH (17:32)
[2018-04-07] MEDS ORDERED: ONDANSETRON 4 MG/2 ML VIAL IVPUSH PRN (17:32)
[2018-04-07] MEDS ORDERED: ACETAMINOPHEN 1000 MG/100 ML VIAL (NON FORMULARY) IVPB PRN (17:32)
--- NOTE | 2018-04-07 17:53 | PATH ---
Surgical Pathology Report Patient Name: TAMEKA MONTEJO [facility]. Rec. #: [id number] /Age/Gender: 1950 (Age: 67) / F Account: [id number] Location: [facility] Taken: 04/04/2018 Received: 04/05/2018 Reported: 04/07/2018 Physicians: Junior Hayward M.D. Specimen(s) Received DISC L2-S1 Clinical History Spinal stenosis Final Diagnosis DISC, L2-S1, LAMINECTOMY, POSTERIOR LUMBAR INTERBODY FUSION: BENIGN INTERVERTEBRAL DISC TISSUE. Electronically Signed Olga Lidia Beebe M.D. Gross Description Received in formalin labeled "disc L2-S1," is a 5.2 x 5.0 x 0.8 cm aggregate of jack fragments of fibrocartilaginous tissue. A branch customer service representative portion is submitted in one cassette. /04/06/2018 saudi04/06/2018
[2018-04-08] MEDS: DOCUSATE SODIUM 100 MG CAPSULE (FP) PO SCH ×3 (05:42→22:09)
[2018-04-08] MEDS ORDERED: LEVOTHYROXINE NA 100 MCG TABLET (FP) PO SCH (07:00)
[2018-04-08] MEDS ORDERED: PT OWN MED DRAWER 7, Y5N ONE (09:14)
[2018-04-08] MEDS: CARVEDILOL 6.25 MG TABLET (FP) PO SCH ×2 (09:28→22:09)
[2018-04-08] MEDS ORDERED: LISINOPRIL 5 MG TABLET (FP) PO SCH (10:00)
[2018-04-08] MEDS ORDERED: NICOTINE 14 MG/24 HOURS TOPICAL PATCH TD SCH (10:00)
[2018-04-08] MEDS ORDERED: POLYETHYLENE GLYCOL 3350 119 GM BTL PO SCH (10:00)
--- NOTE | 2018-04-08 10:29 | PN ---
Physical Exam: SUBJECTIVE: Patient seen and examined at the bedside. verbalizing some pain of her lower back and right knee. will order lidoderm patches. OBJECTIVE: patient with slurred speech, but much improved since yesterday. not confused head ct negative for acute process encourage incentive sprirometer patient is tolerating her diet, will advance will give oxycodone at night only. states that is when her pain is most severe. Vital Signs Period Temp Pulse Resp BP Sys/Finney Pulse Ox Last 24 Hr 98 F-99 F 96-103 19-27 91-147/64-115 100 GENERAL: The patient in no acute distress. HEAD: Normal with no signs of trauma. EYES: PERRL, extraocular movements intact, sclera anicteric, conjunctiva clear. No ptosis. ENT: Ears normal, nares patent, oropharynx clear without exudates, moist mucous membranes. NECK: Trachea midline, full range of motion, supple. LUNGS: Breath sounds equal, clear to auscultation anteriorly HEART: Regular rate and rhythm, 70s ABDOMEN: Soft, nontender, nondistended, normoactive bowel sounds EXTREMITIES: no edema NEUROLOGICAL:slow speech PSYCH: Normal mood, normal affect. SKIN: bilateral knee surgical scars Active Medications Generic Name Dose Route Start Last Admin Trade Name Freq PRN Reason Stop Dose Admin Acetaminophen 1,000 mg 04/07/18 17:32 Ofirmev Injection - IVPB Q6H PRN PAIN Carvedilol 6.25 mg 04/07/18 22:00 04/08/18 09:28 Coreg - PO 6.25 mg BID JULIO Administration Docusate Sodium 100 mg 04/07/18 22:00 04/08/18 05:42 Colace - PO 100 mg TID JULIO Administration Levothyroxine Sodium 100 mcg 04/08/18 07:00 04/08/18 06:39 Synthroid - PO 100 mcg DAILY@0700 JULIO Administration Lisinopril 2.5 mg 04/08/18 10:00 04/08/18 09:28 Prinivil PO 2.5 mg DAILY JULIO Administration Nicotine 14 mg 04/08/18 10:00 04/08/18 09:28 Nicoderm Patch - TD 14 mg DAILY JULIO Administration Ondansetron HCl 4 mg 04/07/18 17:32 04/08/18 01:28 Zofran Injection IVPUSH 4 mg Q6H PRN Administration NAUSEA AND/OR VOMITING Polyethylene Glycol 17 gm 04/08/18 10:00 04/08/18 10:07 Miralax (For Daily Use) - PO Not Given DAILY JULIO ASSESSMENT/PLAN: Patient is a 67 year old patient who is post op day #3 s/p lumbar laminectomies , osteotomies, asrthrodesis, L5 partial corpectomy, posterior lumbar interbody, bone allograft, autograft and bone marrow aspiration. Her past medical history (per her paper chart) is noted as:. hypothyroidism h/o thyroidectomy ischemic cardiomyopathy CHF htn hyperlipidemia COPD Hepatitis C [place] with KAREN and stent placement Bilateral knee replacement ----- Surgery: POD #4 s/p lumbar laminectomies, osteotomies, asrthrodesis, L5 partial corpectomy, posterior lumbar interbody, bone allograft, autograft and bone marrow aspiration. vitals signs stable incentive spirometer on oxycodone at hs chest xray noted initiate bowel regimen physical therapy d/cd christianson, monitor output daily cbc and labs Psyche AMS Acute delirium, resolved head ct negative fen tolerating PO monitor electrolytes regular diet physical therapy Visit type - Emergency Visit Emergency Visit: Yes ED Registration Date: 04/04/18 Care time: The patient presented to the Emergency Department on the above date and was hospitalized for further evaluation of their emergent condition. - New Patient This patient is new to me today: No - Critical Care Critical Care patient: No - Discharge Referral Referred to [facility] Med P.C.: No
--- NOTE | 2018-04-08 11:22 | PN ---
Progress Note, PATTERN KEEPER - Note Progress Note: Selected Entries 04/07/18 04/07/18 04/07/18 02:00 06:00 08:00 Breakfast Lunch Temperature 98.4 F 98.1 F 98.3 F 04/07/18 04/07/18 04/07/18 08:51 12:00 14:00 Breakfast 50% Lunch Temperature 98 F 98.2 F 04/07/18 04/07/18 04/07/18 15:12 16:00 18:00 Breakfast Lunch 50% Temperature 98.1 F 98.2 F 04/07/18 04/07/18 04/08/18 20:00 22:00 02:00 Breakfast Lunch Temperature 98.4 F 98.6 F 98.6 F 04/08/18 06:00 Breakfast Lunch Temperature 99 F Laboratory Tests 04/05/18 04/06/18 04/07/18 05:30 05:30 05:30 WBC 14.2 H 17.4 H 14.9 H Speech/mentation improving slowly. Consider diet upgrade to reg, chopped diet. If tolerates, may be able to upgrade further over the weekend if mentation/ speech production continue to improve. Elevate HOB during meals, as tolerated.
[2018-04-08] MEDS ORDERED: ACETAMINOPHEN 1000 MG/100 ML VIAL (NON FORMULARY) IVPB PRN (12:35)
[2018-04-08] MEDS ORDERED: ONDANSETRON 4 MG/2 ML VIAL IVPUSH PRN (12:35)
[2018-04-08] MEDS ORDERED: RANITIDINE HCL 150 MG TABLET (FP) PO ONE (14:42)
[2018-04-08] MEDS ORDERED: oxyCODONE HCL 5 MG TABLET PO PRN (15:00)
[2018-04-08] MEDS ORDERED: SENNOSIDES 8.6MG TABLET (FP) PO PRN (15:02)
[2018-04-08] MEDS: LIDOCAINE 5% TOPICAL PATCH TP SCH (16:45)
[2018-04-08] MEDS: POLYETHYLENE GLYCOL 3350 119 GM BTL PO SCH (16:45)
--- NOTE | 2018-04-08 17:10 | PN ---
Physical Exam: SUBJECTIVE: Patient seen and examined. No acute events overnight. OBJECTIVE: Vital Signs Period Temp Pulse Resp BP Sys/Finney Pulse Ox Last 24 Hr 98.2 F-99 F 96-103 19-27 112-147/69-115 100-100 GENERAL: The patient is awake, alert, and fully oriented, in no acute distress. HEAD: Normal with no signs of trauma. EYES: PERRLA, extraocular movements intact, ENT: moist mucous membranes. NECK: Trachea midline, full range of motion, supple. LUNGS: Breath sounds equal, clear to auscultation bilaterally, no wheezes, no crackles, no accessory muscle use. HEART: Regular rate and rhythm, S1, S2 without murmur, rub or gallop. ABDOMEN: Soft, nontender, nondistended, normoactive bowel sounds, no guarding, no rebound, no hepatosplenomegaly, no masses. EXTREMITIES: 2+ pulses, warm, well-perfused, no edema. NEUROLOGICAL: AOx3 SKIN: Warm, dry, normal turgor, no rashes or lesions noted Active Medications Generic Name Dose Route Start Last Admin Trade Name Freq PRN Reason Stop Dose Admin Acetaminophen 650 mg 04/08/18 14:45 Tylenol - PO Q6H PRN PAIN LEVEL 7 - 10 Carvedilol 6.25 mg 04/08/18 22:00 Coreg - PO BID JULIO Docusate Sodium 100 mg 04/08/18 14:00 04/08/18 14:36 Colace - PO 100 mg TID JULIO Administration Levothyroxine Sodium 100 mcg 04/09/18 07:00 Synthroid - PO DAILY@0700 JULIO Lidocaine 2 patch 04/08/18 15:00 04/08/18 16:45 Lidoderm Patch - TP 2 patch DAILY JULIO Administration Lisinopril 2.5 mg 04/09/18 10:00 Prinivil PO DAILY [facility] Miscellaneous 1 each 04/08/18 22:00 Lidoderm Patch Removal MC DAILY@2200 [facility] Nicotine 14 mg 04/09/18 10:00 Nicoderm Patch - TD DAILY JULIO Ondansetron HCl 4 mg 04/08/18 12:35 Zofran Injection IVPUSH Q6H PRN NAUSEA AND/OR VOMITING Oxycodone HCl 5 mg 04/08/18 15:00 Roxicodone - PO HS PRN PAIN LEVEL 7 - 10 Polyethylene Glycol 17 gm 11/30/18 14:45 04/08/18 16:45 Miralax (For Daily Use) - PO 17 gm DAILY JULIO Administration Ranitidine HCl 150 mg 04/08/18 22:00 Zantac - PO BID JULIO Senna 2 tab 04/08/18 15:02 Senna - PO HS PRN CONSTIPATION ASSESSMENT/PLAN: 67 year old pos op day #3 from lumbar laminectomies, osteotomies, asrthrodesis, L5 partial corpectomy, posterior lumbar interbody, bone allograft, autograft and bone marrow aspiration. PMHX hypothyroidism, h/o thyroidectomy, ischemic cardiomyopathy, CHF, htn, hyperlipidemia, COPD, Hepatitis C, Hepatitis, [place] with KAREN and stent placement, Bilateral knee replacement Pulm - Incentive spirometry - CXR daily F/E/N - full liquid diet advance as tolerated - drain d/c - christianson to be d/c when ambulating - PT/OT/Rehab Pain control - avoid NSAIDs - Tylenol PRN DVT PPx: SCDs Dispo: transfer Visit type - Emergency Visit Emergency Visit: Yes ED Registration Date: 04/04/18 Care time: The patient presented to the Emergency Department on the above date and was hospitalized for further evaluation of their emergent condition. - New Patient This patient is new to me today: Yes Date on this admission: 04/08/18 - Critical Care Critical Care patient: Yes Total Critical Care Time (in minutes): 36 Critical Care Statement: The care of this patient involved high complexity decision making to prevent further life threatening deterioration of the patient 's condition and/or to evaluate & treat vital organ system(s) failure or risk of failure.
[2018-04-08] MEDS: ACETAMINOPHEN 325 MG TABLET (FP) PO PRN (19:37)
[2018-04-08] MEDS: RANITIDINE HCL 150 MG TABLET (FP) PO SCH (22:09)
[2018-04-08] MEDS: LIDOCAINE PATCH REMOVAL MC SCH (22:12)
[2018-04-09] MEDS: LEVOTHYROXINE NA 100 MCG TABLET (FP) PO SCH (06:15)
[2018-04-09] MEDS: DOCUSATE SODIUM 100 MG CAPSULE (FP) PO SCH ×3 (06:15→22:21)
[2018-04-09] MEDS: LIDOCAINE 5% TOPICAL PATCH TP SCH (09:59)
[2018-04-09] MEDS: LISINOPRIL 5 MG TABLET (FP) PO SCH (10:00)
[2018-04-09] MEDS ORDERED: POLYETHYLENE GLYCOL 3350 119 GM BTL PO SCH (10:00)
[2018-04-09] MEDS: ACETAMINOPHEN 325 MG TABLET (FP) PO PRN ×3 (10:00→22:26)
[2018-04-09] MEDS: CARVEDILOL 6.25 MG TABLET (FP) PO SCH ×2 (10:00→22:21)
[2018-04-09] MEDS: RANITIDINE HCL 150 MG TABLET (FP) PO SCH ×2 (10:00→22:21)
[2018-04-09] MEDS: NICOTINE 14 MG/24 HOURS TOPICAL PATCH TD SCH (10:01)
[2018-04-09] MEDS: POLYETHYLENE GLYCOL 3350 119 GM BTL PO SCH (10:02)
[2018-04-09 10:15] LABS: BASO % 0.4 % (0-2.0); EOS % 0.6 % (0-4.5); HEMOGLOBIN 10.5 GM/dL (10.7-15.3); LYMPH % 27.2 % (8-40); MCH 32.9 pg (25.7-33.7); MCHC 34.9 g/dl (32.0-36.0); MEAN CELL VOLUME 94.3 fl (80-96); MONO % 14.6 % (3.8-10.2); NEUT % 57.2 % (42.8-82.8); PLATELET COUNT 229 K/MM3 (134-434); RBC 3.18 M/mm3 (3.60-5.2); RDW 14.1 % (11.6-15.6); WHITE BLOOD COUNT 12.4 K/mm3 (4.0-10.0)
[2018-04-09 10:46] LABS: ALBUMIN 2.2 g/dl (3.4-5.0); ALK PHOS 62 U/L (45-117); ANION GAP 7 MMOL/L (8-16); BILIRUBIN,TOTAL 1.6 mg/dL (0.2-1); BLOOD UREA NITROGEN 12 mg/dL (7-18); CALCIUM 7.6 mg/dL (8.5-10.1); CHLORIDE 110 mmol/L (98-107); CO2 25 mmol/L (21-32); CREATININE 0.8 mg/dL (0.55-1.3); GLUCOSE,RANDOM 103 mg/dL (74-106); SGOT/AST 50 U/L (15-37); SGPT/ALT 30 U/L (13-61); SODIUM 142 mmol/L (136-145)
[2018-04-09] MEDS ORDERED: oxyCODONE HCL 5 MG TABLET PO ONE (11:10)
--- NOTE | 2018-04-09 13:12 | PN ---
Physical Exam: SUBJECTIVE: Patient seen and examined at the bedside. feels well today, more alert. willing to participate in PT. tolerating diet. had some back pain overnight. I Received a microblog last night that patient had a fever 101F, although not recorded on vitals signs in EMR. blood cultures sent. patient denies any chills or malaise. she does have a non productive moist cough. encouraged incentive spirometer. today, both PT and I got her out of bed. she ambulated from her bed to the door and back to the window. she is sitting in the chair. she tolerated ambulation well. she is eager to go to rehab. OBJECTIVE: mentation improved, pain better, continue oxycodone prn discharge planning to rehab Vital Signs Period Temp Pulse Resp BP Sys/Finney Pulse Ox Last 24 Hr 99.2 F-99.6 F 89-94 18-20 90-101/60-60 98 GENERAL: The patient in no acute distress. awake, alert and oriented x 3 HEAD: Normal with no signs of trauma. EYES: PERRL, extraocular movements intact, sclera anicteric, conjunctiva clear. No ptosis. ENT: Ears normal, nares patent, oropharynx clear without exudates, moist mucous membranes. NECK: Trachea midline, full range of motion, supple. LUNGS: Breath sounds equal, clear to auscultation anteriorly HEART: Regular rate and rhythm, 70s ABDOMEN: Soft, nontender, nondistended, normoactive bowel sounds EXTREMITIES: no edema BACK: intact surgical dressing NEUROLOGICAL:slow speech PSYCH: Normal mood, normal affect. SKIN: bilateral knee surgical scars Laboratory Results - last 24 hr 04/05/18 04/09/18 04/09/18 11:03 09:50 09:50 WBC 12.4 H RBC 3.18 L Hgb 10.5 L Hct 30.0 L MCV 94.3 MCH 32.9 MCHC 34.9 RDW 14.1 Plt Count 229 D MPV 9.0 Absolute Neuts (auto) 7.1 Neutrophils % 57.2 Lymphocytes % 27.2 D Monocytes % 14.6 H Eosinophils % 0.6 D Basophils % 0.4 Nucleated RBC % 0 Sodium 142 Potassium 4.0 Chloride 110 H Carbon Dioxide 25 Anion Gap 7 L BUN 12 Creatinine 0.8 Creat Clearance w eGFR > 60 POC Glucometer [id number] Random Glucose 103 Calcium 7.6 L Total Bilirubin 1.6 H AST 50 H ALT 30 Alkaline Phosphatase 62 Total Protein 6.0 L Albumin 2.2 L Active Medications Generic Name Dose Route Start Last Admin Trade Name Freq PRN Reason Stop Dose Admin Acetaminophen 650 mg 04/08/18 14:45 04/09/18 10:00 Tylenol - PO 650 mg Q6H PRN Administration PAIN LEVEL 7 - 10 Carvedilol 6.25 mg 04/08/18 22:00 04/08/18 22:09 Coreg - PO 6.25 mg BID JULIO Administration Docusate Sodium 100 mg 04/08/18 14:00 04/09/18 06:15 Colace - PO 100 mg TID JULIO Administration Levothyroxine Sodium 100 mcg 04/09/18 07:00 04/09/18 06:15 Synthroid - PO 100 mcg DAILY@0700 JULIO Administration Lidocaine 2 patch 04/08/18 15:00 04/09/18 09:59 Lidoderm Patch - TP 2 patch DAILY JULIO Administration Lisinopril 2.5 mg 04/09/18 10:00 Prinivil PO DAILY JULIO Miscellaneous 1 each 04/08/18 22:00 04/08/18 22:12 Lidoderm Patch Removal MC 1 each DAILY@2200 JULIO Administration Nicotine 14 mg 04/09/18 10:00 04/09/18 10:01 Nicoderm Patch - TD 14 mg DAILY JULIO Administration Ondansetron HCl 4 mg 04/08/18 12:35 Zofran Injection IVPUSH Q6H PRN NAUSEA AND/OR VOMITING Oxycodone HCl 5 mg 04/08/18 15:00 04/09/18 02:24 Roxicodone - PO 5 mg HS PRN Administration PAIN LEVEL 7 - 10 Polyethylene Glycol 17 gm 04/08/18 14:45 04/09/18 10:02 Miralax (For Daily Use) - PO 17 gm DAILY JULIO Administration Ranitidine HCl 150 mg 04/08/18 22:00 04/09/18 10:00 Zantac - PO 150 mg BID JULIO Administration Senna 2 tab 04/08/18 15:02 Senna - PO HS PRN CONSTIPATION ASSESSMENT/PLAN: Patient is a 67 year old patient who is post op day #5 s/p lumbar laminectomies , osteotomies, asrthrodesis, L5 partial corpectomy, posterior lumbar interbody, bone allograft, autograft and bone marrow aspiration. Her past medical history (per her paper chart) is noted as:. hypothyroidism h/o thyroidectomy ischemic cardiomyopathy CHF htn hyperlipidemia COPD Hepatitis C [place] with KAREN and stent placement Bilateral knee replacement ----- Surgery: POD #5 s/p lumbar laminectomies, osteotomies, asrthrodesis, L5 partial corpectomy, posterior lumbar interbody, bone allograft, autograft and bone marrow aspiration. vitals signs stable incentive spirometer strongly encouraged on oxycodone 5mg prn chest xray noted bowel regimen physical therapy, ambulating further voiding spontaneously labs and vitals stable. Psyche AMS/Acute delirium, resolved head ct negative. mentation back to baseline. fen tolerating PO monitor electrolytes regular diet physical therapy Visit type - Emergency Visit Emergency Visit: Yes ED Registration Date: 04/04/18 Care time: The patient presented to the Emergency Department on the above date and was hospitalized for further evaluation of their emergent condition. - New Patient This patient is new to me today: No - Critical Care Critical Care patient: No - Discharge Referral Referred to [facility] Med P.C.: No
--- NOTE | 2018-04-09 15:48 | PN ---
Progress Note (short form) - Note Progress Note: C/O incisional pain No leg pain Vitals All stable CVS Stable perfusing well RESP Clear ABD Soft passing stool Neuro Mental staus fully orientated LE No sensory or mental deficit PLAN Pain mx PT Mobilize D/C planning Wednesday
[2018-04-09] MEDS: oxyCODONE HCL 5 MG TABLET PO PRN (17:38)
[2018-04-09] MEDS: LIDOCAINE PATCH REMOVAL MC SCH (22:21)
[2018-04-10] MEDS: oxyCODONE HCL 5 MG TABLET PO PRN ×3 (04:18→17:18)
[2018-04-10] MEDS: DOCUSATE SODIUM 100 MG CAPSULE (FP) PO SCH ×3 (06:56→22:46)
[2018-04-10] MEDS: LEVOTHYROXINE NA 100 MCG TABLET (FP) PO SCH (06:56)
[2018-04-10 07:49] LABS: BASO % 0.3 % (0-2.0); EOS % 1.1 % (0-4.5); HEMATOCRIT 29.6 % (32.4-45.2); HEMOGLOBIN 9.5 GM/dL (10.7-15.3); LYMPH % 26.3 % (8-40); MCH 30.7 pg (25.7-33.7); MCHC 32.2 g/dl (32.0-36.0); MEAN CELL VOLUME 95.4 fl (80-96); MEAN PLT VOLUME 8.9 fl (7.5-11.1); MONO % 10.8 % (3.8-10.2); NEUT % 61.5 % (42.8-82.8); PLATELET COUNT 231 K/MM3 (134-434); RDW 14.3 % (11.6-15.6); WHITE BLOOD COUNT 13.2 K/mm3 (4.0-10.0)
[2018-04-10 08:37] LABS: ALBUMIN 2.1 g/dl (3.4-5.0); ALK PHOS 59 U/L (45-117); ANION GAP 7 MMOL/L (8-16); BILIRUBIN,TOTAL 1.3 mg/dL (0.2-1); BLOOD UREA NITROGEN 12 mg/dL (7-18); CALCIUM 7.5 mg/dL (8.5-10.1); CHLORIDE 108 mmol/L (98-107); CO2 24 mmol/L (21-32); CREATININE 0.7 mg/dL (0.55-1.3); GLUCOSE,RANDOM 87 mg/dL (74-106); POTASSIUM 4.1 mmol/L (3.5-5.1); SGOT/AST 37 U/L (15-37); SGPT/ALT 26 U/L (13-61); SODIUM 138 mmol/L (136-145); TOT PROT 5.7 g/dl (6.4-8.2)
[2018-04-10] MEDS: NICOTINE 14 MG/24 HOURS TOPICAL PATCH TD SCH (10:31)
[2018-04-10] MEDS: ACETAMINOPHEN 325 MG TABLET (FP) PO PRN (10:31)
[2018-04-10] MEDS: LIDOCAINE 5% TOPICAL PATCH TP SCH (10:31)
[2018-04-10] MEDS: LISINOPRIL 5 MG TABLET (FP) PO SCH (10:31)
[2018-04-10] MEDS: POLYETHYLENE GLYCOL 3350 119 GM BTL PO SCH (10:33)
[2018-04-10] MEDS: CARVEDILOL 6.25 MG TABLET (FP) PO SCH ×2 (10:33→22:46)
[2018-04-10] MEDS: RANITIDINE HCL 150 MG TABLET (FP) PO SCH ×2 (10:33→22:46)
--- NOTE | 2018-04-10 11:42 | PN ---
Physical Exam: SUBJECTIVE: Patient seen and examined at the bedside. feels well. pain being managed with oxycodone. does not want tylenol as it upsets her stomach. OBJECTIVE: discharge planning to rehab likely tomorrow. Vital Signs Period Temp Pulse Resp BP Sys/Finney Pulse Ox Last 24 Hr 98.0 F-99 F 77-88 16-20 92-129/58-75 98 GENERAL: The patient in no acute distress. awake, alert and oriented x 3 - feels well. wants to sit in chair. HEAD: Normal with no signs of trauma. EYES: PERRL, extraocular movements intact, sclera anicteric, conjunctiva clear. No ptosis. ENT: Ears normal, nares patent, oropharynx clear without exudates, moist mucous membranes. NECK: Trachea midline, full range of motion, supple. LUNGS: Breath sounds equal, clear to auscultation anteriorly HEART: Regular rate and rhythm, 70s ABDOMEN: Soft, nontender, nondistended, normoactive bowel sounds EXTREMITIES: no edema BACK: intact surgical dressing NEUROLOGICAL:clear speech PSYCH: Normal mood, normal affect. SKIN: healed bilateral knee surgical scars Laboratory Results - last 24 hr 04/10/18 04/10/18 07:00 07:00 WBC 13.2 H RBC 3.10 L Hgb 9.5 L Hct 29.6 L MCV 95.4 MCH 30.7 MCHC 32.2 RDW 14.3 Plt Count 231 MPV 8.9 Absolute Neuts (auto) 8.1 H Neutrophils % 61.5 Lymphocytes % 26.3 Monocytes % 10.8 H Eosinophils % 1.1 D Basophils % 0.3 Nucleated RBC % 0 Sodium 138 Potassium 4.1 Chloride 108 H Carbon Dioxide 24 Anion Gap 7 L BUN 12 Creatinine 0.7 Creat Clearance w eGFR > 60 Random Glucose 87 Calcium 7.5 L Total Bilirubin 1.3 H AST 37 ALT 26 Alkaline Phosphatase 59 Total Protein 5.7 L Albumin 2.1 L Active Medications Generic Name Dose Route Start Last Admin Trade Name Freq PRN Reason Stop Dose Admin Acetaminophen 650 mg 04/08/18 14:45 04/10/18 10:31 Tylenol - PO 650 mg Q6H PRN Administration PAIN LEVEL 7 - 10 Carvedilol 6.25 mg 04/08/18 22:00 04/10/18 10:33 Coreg - PO 6.25 mg BID JULIO Administration Docusate Sodium 100 mg 04/08/18 14:00 04/10/18 06:56 Colace - PO 100 mg TID JULIO Administration Levothyroxine Sodium 100 mcg 04/09/18 07:00 04/10/18 06:56 Synthroid - PO 100 mcg DAILY@0700 JULIO Administration Lidocaine 2 patch 04/08/18 15:00 04/10/18 10:31 Lidoderm Patch - TP 2 patch DAILY JULIO Administration Lisinopril 2.5 mg 04/09/18 10:00 04/10/18 10:31 Prinivil PO 2.5 mg DAILY JULIO Administration Miscellaneous 1 each 04/08/18 22:00 04/09/18 22:21 Lidoderm Patch Removal MC 1 each DAILY@2200 JULIO Administration Nicotine 14 mg 04/09/18 10:00 04/10/18 10:31 Nicoderm Patch - TD 14 mg DAILY JULIO Administration Ondansetron HCl 4 mg 04/08/18 12:35 Zofran Injection IVPUSH Q6H PRN NAUSEA AND/OR VOMITING Oxycodone HCl 5 mg 04/09/18 14:06 04/10/18 10:32 Roxicodone - PO 5 mg Q6H PRN Administration PAIN LEVEL 7 - 10 Polyethylene Glycol 17 gm 04/08/18 14:45 04/10/18 10:33 Miralax (For Daily Use) - PO 17 gm DAILY JULIO Administration Ranitidine HCl 150 mg 04/08/18 22:00 04/10/18 10:33 Zantac - PO 150 mg BID JULIO Administration Senna 2 tab 04/08/18 15:02 Senna - PO HS PRN CONSTIPATION ASSESSMENT/PLAN: Patient is a 67 year old patient who is post op day #6 s/p lumbar laminectomies , osteotomies, asrthrodesis, L5 partial corpectomy, posterior lumbar interbody, bone allograft, autograft and bone marrow aspiration. Her past medical history (per her paper chart) is noted as:. hypothyroidism h/o thyroidectomy ischemic cardiomyopathy CHF hypertension hyperlipidemia COPD Hepatitis C AL with KAREN and stent placement Bilateral knee replacement ----- Surgery: POD #6 s/p lumbar laminectomies, osteotomies, asrthrodesis, L5 partial corpectomy, posterior lumbar interbody, bone allograft, autograft and bone marrow aspiration. vitals signs stable incentive spirometer strongly encouraged on oxycodone 5mg prn chest xray noted bowel regimen physical therapy, ambulating further. voiding spontaneously, not constipated labs and vitals stable. Psyche AMS/Acute delirium, resolved fen tolerating PO monitor electrolytes regular diet physical therapy Visit type - Emergency Visit Emergency Visit: Yes ED Registration Date: 04/04/18 Care time: The patient presented to the Emergency Department on the above date and was hospitalized for further evaluation of their emergent condition. - New Patient This patient is new to me today: No - Critical Care Critical Care patient: No - Discharge Referral Referred to [facility] No
[2018-04-10] MEDS: LIDOCAINE PATCH REMOVAL MC SCH (22:47)
[2018-04-11] MEDS ORDERED: MELATONIN 5 MG TABLETS PO ONE (00:33)
[2018-04-11] MEDS: DOCUSATE SODIUM 100 MG CAPSULE (FP) PO SCH ×3 (06:32→21:48)
[2018-04-11] MEDS: LEVOTHYROXINE NA 100 MCG TABLET (FP) PO SCH (06:32)
[2018-04-11] MEDS: oxyCODONE HCL 5 MG TABLET PO PRN ×3 (06:34→21:48)
[2018-04-11] MEDS: CARVEDILOL 6.25 MG TABLET (FP) PO SCH ×2 (09:41→21:48)
[2018-04-11] MEDS: NICOTINE 14 MG/24 HOURS TOPICAL PATCH TD SCH (09:42)
[2018-04-11] MEDS: LIDOCAINE 5% TOPICAL PATCH TP SCH (09:42)
[2018-04-11] MEDS: LISINOPRIL 5 MG TABLET (FP) PO SCH (09:42)
[2018-04-11] MEDS: POLYETHYLENE GLYCOL 3350 119 GM BTL PO SCH (09:43)
[2018-04-11] MEDS: RANITIDINE HCL 150 MG TABLET (FP) PO SCH ×2 (09:43→21:48)
[2018-04-11] MEDS ORDERED: INSULIN (LEVEMIR) 100 UNITS/ML UNITS SQ ONE (09:53)
[2018-04-11] MEDS ORDERED: BISACODYL 5 MG TABLET.DR (FP) PO ONE (12:37)
[2018-04-11] MEDS ORDERED: BISACODYL 10 MG SUPP.RECT RC ONE (12:37)
[2018-04-11] MEDS ORDERED: MELATONIN 5 MG TABLETS PO PRN (13:45)
--- NOTE | 2018-04-11 13:45 | PN ---
Physical Exam: SUBJECTIVE: Patient seen and examined at the bedside. denies pain, denies shortness of breath. OBJECTIVE: patient ambulated in her room with minimal assistance. she ambulated with RW with minimal assistance. reports feeling stronger. discharge plan: awaiting final approval for rehab facility for rehab. eating well, pain being managed with oxycodone melatonin for sleep given dulcolax pr and PO for constipation Period Temp Pulse Resp BP Sys/Finney Pulse Ox Last 24 Hr 98.2 F-98.5 F 81-87 16-19 88-102/49-64 98-98 GENERAL: The patient in no acute distress. awake, alert and oriented x 3 - feels well. wants to sit in chair. HEAD: Normal with no signs of trauma. EYES: PERRL, extraocular movements intact, sclera anicteric, conjunctiva clear. No ptosis. ENT: Ears normal, nares patent, oropharynx clear without exudates, moist mucous membranes. NECK: Trachea midline, full range of motion, supple. LUNGS: Breath sounds equal, clear to auscultation anteriorly HEART: Regular rate and rhythm, 70s ABDOMEN: Soft, nontender, nondistended, normoactive bowel sounds EXTREMITIES: no edema BACK: intact surgical dressing NEUROLOGICAL:clear speech PSYCH: Normal mood, normal affect. SKIN: healed bilateral knee surgical scars Active Medications Generic Name Dose Route Start Last Admin Trade Name Freq PRN Reason Stop Dose Admin Carvedilol 6.25 mg 04/08/18 22:00 04/11/18 09:41 Coreg - PO 6.25 mg BID JULIO Administration Docusate Sodium 100 mg 04/08/18 14:00 04/11/18 13:17 Colace - PO 100 mg TID JULIO Administration Levothyroxine Sodium 100 mcg 04/09/18 07:00 04/11/18 06:32 Synthroid - PO 100 mcg DAILY@0700 JULIO Administration Lidocaine 2 patch 04/08/18 15:00 04/11/18 09:42 Lidoderm Patch - TP 2 patch DAILY JULIO Administration Lisinopril 2.5 mg 04/09/18 10:00 04/11/18 09:42 Prinivil PO 2.5 mg DAILY JULIO Administration Melatonin 5 mg 04/11/18 13:45 Melatonin PO HS PRN INSOMNIA Miscellaneous 1 each 04/08/18 22:00 04/10/18 22:47 Lidoderm Patch Removal MC Not Given DAILY@2200 JULIO Nicotine 14 mg 04/09/18 10:00 04/11/18 09:42 Nicoderm Patch - TD 14 mg DAILY JULIO Administration Ondansetron HCl 4 mg 04/08/18 12:35 Zofran Injection IVPUSH Q6H PRN NAUSEA AND/OR VOMITING Oxycodone HCl 5 mg 04/09/18 14:06 04/11/18 13:16 Roxicodone - PO 5 mg Q6H PRN Administration PAIN LEVEL 7 - 10 Polyethylene Glycol 17 gm 04/08/18 14:45 04/11/18 09:43 Miralax (For Daily Use) - PO 17 gm DAILY JULIO Administration Ranitidine HCl 150 mg 04/08/18 22:00 04/11/18 09:43 Zantac - PO 150 mg BID JULIO Administration Senna 2 tab 04/08/18 15:02 Senna - PO HS PRN CONSTIPATION ASSESSMENT/PLAN: Patient is a 67 year old patient who is post op day #7 s/p lumbar laminectomies , osteotomies, asrthrodesis, L5 partial corpectomy, posterior lumbar interbody, bone allograft, autograft and bone marrow aspiration. ----- hypothyroidism h/o thyroidectomy ischemic cardiomyopathy CHF hypertension hyperlipidemia COPD Hepatitis C [place] with KAREN and stent placement Bilateral knee replacement ----- Surgery: POD #7 s/p lumbar laminectomies, osteotomies, asrthrodesis, L5 partial corpectomy, posterior lumbar interbody, bone allograft, autograft and bone marrow aspiration. vitals signs stable incentive spirometer strongly encouraged on oxycodone 5mg prn chest xray noted bowel regimen physical therapy, ambulating further on her own voiding spontaneously, not constipated labs and vitals stable. Psyche AMS/Acute delirium, resolved. mental status at baseline. alert and oriented to person, place and time. head ct negative. fen tolerating PO monitor electrolytes regular diet physical therapy discharge to rehab, AVINASH coordinating. Visit type - Emergency Visit Emergency Visit: Yes ED Registration Date: 04/04/18 Care time: The patient presented to the Emergency Department on the above date and was hospitalized for further evaluation of their emergent condition. - New Patient This patient is new to me today: No - Critical Care Critical Care patient: No - Discharge Referral Referred to [facility] Med P.C.: No
[2018-04-11 16:55] VITALS: BMI 34.2
[2018-04-11] MEDS: LIDOCAINE PATCH REMOVAL MC SCH (21:53)
[2018-04-12] MEDS: oxyCODONE HCL 5 MG TABLET PO PRN ×4 (04:43→22:41)
[2018-04-12] MEDS: DOCUSATE SODIUM 100 MG CAPSULE (FP) PO SCH (06:26)
[2018-04-12] MEDS: LEVOTHYROXINE NA 100 MCG TABLET (FP) PO SCH (06:26)
[2018-04-12] MEDS: LIDOCAINE 5% TOPICAL PATCH TP SCH (09:52)
[2018-04-12] MEDS: POLYETHYLENE GLYCOL 3350 119 GM BTL PO SCH (09:53)
[2018-04-12] MEDS: CARVEDILOL 6.25 MG TABLET (FP) PO SCH ×2 (09:53→21:20)
[2018-04-12] MEDS: RANITIDINE HCL 150 MG TABLET (FP) PO SCH ×2 (09:53→21:20)
[2018-04-12] MEDS: LISINOPRIL 5 MG TABLET (FP) PO SCH (09:53)
[2018-04-12] MEDS: NICOTINE 14 MG/24 HOURS TOPICAL PATCH TD SCH (09:54)
[2018-04-12] MEDS ORDERED: PT OWN MED DRAWER 7, Y5N ONE (10:56)
--- NOTE | 2018-04-12 11:22 | DS ---
Physical Exam: SUBJECTIVE: Patient seen and examined; pain remains at baseline. Documented as being ambulatory. No fecal or urinary incontinance. Doing well otherwise. In agreement with DC. Followup with PCP and Dr. Hayward. Will be going to facility today. Discussed with patient and social worker psychiatric OBJECTIVE: Vital Signs Period Temp Pulse Resp BP Sys/Finney Pulse Ox Last 24 Hr 97.5 F-99.5 F 68-90 18-20 88-116/37-57 98 PHYSICAL EXAM GENERAL: The patient is awake, alert, and fully oriented, in no acute distress. HEAD: Normal with no signs of trauma. EYES: PERRL, extraocular movements intact, sclera anicteric, conjunctiva clear. ENT: Ears normal, nares patent, oropharynx clear without exudates, moist mucous membranes. NECK: Trachea midline, full range of motion, supple. LUNGS: Breath sounds equal, clear to auscultation bilaterally, no wheezes, no crackles, no accessory muscle use. HEART: Regular rate and rhythm, S1, S2 without murmur, rub or gallop. ABDOMEN: Soft, nontender, nondistended, normoactive bowel sounds EXTREMITIES: 2+ pulses, warm, well-perfused, no edema. NEUROLOGICAL: Cranial nerves II through XII grossly intact. Normal speech, gait not observed. PSYCH: Normal mood, normal affect. SKIN: Warm, dry, normal turgor, no rashes or lesions noted. LABS No new HOSPITAL COURSE: Date of Admission:04/04/18 Date of Discharge: 04/12/18 Operative Date: 04/04/18 Pre-Operative Diagnosis: 1. 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 2. Severe multi-level lumbar spinal stenosis with neurogenic claudication. 3. L4-L5 spondylolisthesis ( anterolisthesis). 5. Sagittal vertical malalignment/imbalance (kyphosis). 6. Neurological decline/weakness. 7. Neurogenic bladder. Procedure: 1. L2, L3, L4, L5, S1 laminectomies. 2. L2, L3, L4, L5, S1 osteotomies (facetectomies). 3. L3-L4, L4-L5 Chapman Blank Osteotomies. 4. L2 -S1 posterior instrumentation. 5. L2-S1 posterolateral arthrodesis. 6. L3-L4, L4-L5, L5-S1 posterior lumbar interbody fusion. 7. L5 partial corpectomy. 8. L3-L4, L4-L5, L5-S1 mechanical device. 9. Bone allograft. 10. Bone autograft. 11. Bone marrow aspiration. 12. Complex wound closure 1) S/P Laminectomy for chronic lower back pain 2/2 IVD disorder, lumbar spinal stenosis, neurogenic claudication -Doing well postop. Continue home oxycodone for pain with PRN available. -Ambulating with PT; continue to work with them. Continue incentive spirometry and bowel regimine. -Follow restrictions; no lifting/twisting/bending 9-12 months, no NSAIDs, no chemical DVT px -Holding her home ASA; renew when OK with Dr. Hayward -Followup with PCP, Dr. Hayward. 2) H/o Hypothyroidism -Followup TSH with PCP; continue home tx without any inpatient changes made 3) H/o HTN -Continue home meds; followup OP for GDMT. 4) H/o CAD -Doing well; is s/p stent but doesn't require DAPT. Holding ASA; renew when OK with Dr. Hayward. -Followup with [facility] as OP as scheduled 5) Documented h/o CHF -No home diuresis; no issues here; not starting new meds. Followup PCP, [facility]. 6) H/O COPD -No active exacerbation; avoid all triggers and all tobacco and followup with PCP 7) H/o Hep C -No acute issues; needs OP followup DVT px with SCDs Followups: -PCP 3-5 days -Dr. Hayward as per his service or at least within 7-10 daus Full Code Minutes to complete discharge: 45 Discharge Summary Reason For Visit: SPINAL STENOSIS Other Procedures: Operative Date: 04/04/18. Pre-Operative Diagnosis: 1. Multi- level lumbar intervertebral disc disorder with bilateral lower extremity radiculopathy. 2. Severe multi-level lumbar spinal stenosis with neurogenic claudication. 3. L4-L5 spondylolisthesis (anterolisthesis). 5. Sagittal vertical malalignment/imbalance (kyphosis). 6. Neurological decline/weakness. 7. Neurogenic bladder. Operation: 1. L2, L3, L4, L5, S1 laminectomies. 2. L2, L3, L4, L5, S1 osteotomies (facetectomies). 3. L3-L4, L4-L5 Chapman Blank Osteotomies. 4. L2-S1 posterior instrumentation. 5. L2-S1 posterolateral arthrodesis. 6. L3-L4, L4-L5, L5-S1 posterior lumbar interbody fusion. 7. L5 partial corpectomy. 8. L3-L4, L4-L5, L5-S1 mechanical device. 9. Bone allograft. 10. Bone autograft. 11. Bone marrow aspiration. 12. Complex wound closure Condition: Good - Instructions Diet, Activity, Other Instructions: No bending, lifting, twisting for 9-12 months Follow all recommendations, restrictions made by orthopedics Avoid anticoagulation, NSAIDs, etc. uncless cleared to take by PCP and Dr. Hayward Keep all followup appointments (Dr. Hayward, PCP) as directed Monitor for constipation, flatus If any numbness, tingling, loss of bowel or bladder control, loss of ambulatory function, please return to the ER immediately for prompt evaluation Referrals: primary care,primary care [Other] - 1 Week Junior Hayward MD [Staff Physician] - 1 Week (Followup with [facility] within 7-10 days or as directed by Dr. Hayward) Disposition: [facility] FACILITY - Home Medications Comprehensive Discharge Medication List: Ambulatory Orders Home Medications Medication Instructions Recorded Atorvastatin Ca [Lipitor] 40 mg PO HS 03/25/18 Carvedilol 6.25 mg PO BID 03/25/18 Diazepam 10 mg PO TID 03/25/18 Oxycodone HCl [Oxycodone HCl ER] 20 mg PO TID 03/25/18 Docusate Sodium [Colace -] 100 mg PO TID capsule 04/12/18 Levothyroxine [Synthroid -] 100 mcg PO DAILY@0700 tablet 04/12/18 Lidocaine 5% Patch [Lidoderm -] 2 patch TP DAILY patch 04/12/18 Lidocaine Patch Removal [Lidoderm 1 each MC DAILY@2200 each 04/12/18 Patch Removal] Lisinopril [Prinivil] 2.5 mg PO DAILY tablet 04/12/18 Melatonin 5 mg PO HS PRN tab 04/12/18 Nicotine Patch [Nicoderm Patch -] 14 mg TD DAILY patch 04/12/18 Polyethylene Glycol 3350 [Miralax 17 gm PO DAILY bottle 04/12/18 119 gm Btl -] Ranitidine [Zantac -] 150 mg PO BID tablet 04/12/18 Sennosides [Senna -] 2 tab PO HS PRN tablet 04/12/18 oxyCODONE HCL [Roxicodone -] 5 mg PO Q6H PRN #0 tablet MDD 4 04/12/18 This patient is new to me today: Yes Date on this admission: 04/12/18 Emergency Visit: No Critical Care patient: No - Discharge Referral Referred to [facility] No
[2018-04-12] MEDS: LIDOCAINE PATCH REMOVAL MC SCH (21:22)
[2018-04-13] MEDS: oxyCODONE HCL 5 MG TABLET PO PRN ×2 (05:48→13:30)
[2018-04-13] MEDS: LEVOTHYROXINE NA 100 MCG TABLET (FP) PO SCH (06:26)
[2018-04-13 07:08] VITALS: TEMP 98.6
[2018-04-13 08:49] VITALS: BP 94/59; PULSE 90
[2018-04-13] MEDS: CARVEDILOL 6.25 MG TABLET (FP) PO SCH (09:14)
[2018-04-13] MEDS: LISINOPRIL 5 MG TABLET (FP) PO SCH (09:14)
[2018-04-13 09:16] LABS: BASO % 0.5 % (0-2.0); EOS % 0.6 % (0-4.5); HEMATOCRIT 29.8 % (32.4-45.2); HEMOGLOBIN 10.2 GM/dL (10.7-15.3); LYMPH % 20.4 % (8-40); MCH 32.5 pg (25.7-33.7); MCHC 34.4 g/dl (32.0-36.0); MEAN CELL VOLUME 94.5 fl (80-96); MEAN PLT VOLUME 8.2 fl (7.5-11.1); MONO % 9.3 % (3.8-10.2); NEUT % 69.2 % (42.8-82.8); PLATELET COUNT 314 K/MM3 (134-434); RBC 3.15 M/mm3 (3.60-5.2); RDW 14.1 % (11.6-15.6); WHITE BLOOD COUNT 13.6 K/mm3 (4.0-10.0)
[2018-04-13 09:40] LABS: ANION GAP 9 MMOL/L (8-16); BLOOD UREA NITROGEN 11 mg/dL (7-18); CALCIUM 7.7 mg/dL (8.5-10.1); CHLORIDE 105 mmol/L (98-107); CO2 23 mmol/L (21-32); CREATININE 0.8 mg/dL (0.55-1.3); GLUCOSE,RANDOM 97 mg/dL (74-106); POTASSIUM 4.1 mmol/L (3.5-5.1); SODIUM 137 mmol/L (136-145)
--- NOTE | 2018-04-13 10:58 | PN ---
Physical Exam: SUBJECTIVE: Patient seen and examined; Doing well, no further fevers OBJECTIVE: Vital Signs Period Temp Pulse Resp BP Sys/Finney Pulse Ox Last 24 Hr 98.2 F-100.3 F 86-90 18-20 81-100/48-62 97 GENERAL: The patient is awake, alert, and fully oriented, in no acute distress. HEAD: Normal with no signs of trauma. EYES: PERRL, extraocular movements intact, sclera anicteric, conjunctiva clear. No ptosis. ENT: Ears normal, nares patent, oropharynx clear without exudates, moist mucous membranes. NECK: Trachea midline, full range of motion, supple. LUNGS: Breath sounds equal, clear to auscultation bilaterally, no wheezes, no crackles, no accessory muscle use. HEART: Regular rate and rhythm, S1, S2 without murmur, rub or gallop. ABDOMEN: Soft, nontender, nondistended, normoactive bowel sounds, no guarding, no rebound, no hepatosplenomegaly, no masses. EXTREMITIES: 2+ pulses, warm, well-perfused, no edema. NEUROLOGICAL: Cranial nerves II through XII grossly intact. Normal speech, gait not observed. PSYCH: Normal mood, normal affect. SKIN: Warm, dry, normal turgor, no rashes or lesions noted Laboratory Results - last 24 hr 04/13/18 04/13/18 08:45 08:45 WBC 13.6 H RBC 3.15 L Hgb 10.2 L Hct 29.8 L MCV 94.5 MCH 32.5 MCHC 34.4 RDW 14.1 Plt Count 314 D MPV 8.2 Absolute Neuts (auto) 9.4 H Neutrophils % 69.2 Lymphocytes % 20.4 D Monocytes % 9.3 Eosinophils % 0.6 Basophils % 0.5 Nucleated RBC % 0 Sodium 137 Potassium 4.1 Chloride 105 Carbon Dioxide 23 Anion Gap 9 BUN 11 Creatinine 0.8 Creat Clearance w eGFR > 60 Random Glucose 97 Calcium 7.7 L Active Medications Generic Name Dose Route Start Last Admin Trade Name Freq PRN Reason Stop Dose Admin Carvedilol 6.25 mg 04/11/18 18:36 04/13/18 09:14 Coreg - PO Not Given BID JULIO Levothyroxine Sodium 100 mcg 04/09/18 07:00 04/13/18 06:26 Synthroid - PO 100 mcg DAILY@0700 JULIO Administration Lidocaine 2 patch 04/08/18 15:00 04/12/18 09:52 Lidoderm Patch - TP 2 patch DAILY JULIO Administration Lisinopril 2.5 mg 04/11/18 18:36 04/13/18 09:14 Prinivil PO Not Given DAILY JULIO Melatonin 5 mg 04/11/18 13:45 04/11/18 21:48 Melatonin PO 5 mg HS PRN Administration INSOMNIA Miscellaneous 1 each 04/08/18 22:00 04/12/18 21:22 Lidoderm Patch Removal MC 1 each DAILY@2200 JULIO Administration Nicotine 14 mg 04/09/18 10:00 04/12/18 09:54 Nicoderm Patch - TD 14 mg DAILY JULIO Administration Ondansetron HCl 4 mg 04/08/18 12:35 Zofran Injection IVPUSH Q6H PRN NAUSEA AND/OR VOMITING Oxycodone HCl 5 mg 04/09/18 14:06 04/13/18 05:48 Roxicodone - PO 5 mg Q6H PRN Administration PAIN LEVEL 7 - 10 Polyethylene Glycol 17 gm 04/08/18 14:45 04/12/18 09:53 Miralax (For Daily Use) - PO Not Given DAILY JULIO Ranitidine HCl 150 mg 04/08/18 22:00 04/12/18 21:20 Zantac - PO 150 mg BID JULIO Administration Senna 2 tab 04/08/18 15:02 Senna - PO HS PRN CONSTIPATION ASSESSMENT/PLAN: As stated the patient was kept overnight because of low grade temp NOT qualifying as a fever. No s/s infection. she is doing well. Will DC to [facility] as planned without any changes. Please refer to [facility] for full assessment and plan and hospital course. No change. Visit type - Emergency Visit Emergency Visit: No - New Patient This patient is new to me today: No - Critical Care Critical Care patient: No
[2018-04-13] MEDS: RANITIDINE HCL 150 MG TABLET (FP) PO SCH (12:15)
[2018-04-13] MEDS: NICOTINE 14 MG/24 HOURS TOPICAL PATCH TD SCH (12:15)
[2018-04-13] MEDS: POLYETHYLENE GLYCOL 3350 119 GM BTL PO SCH (12:16)
[2018-04-13] MEDS: LIDOCAINE 5% TOPICAL PATCH TP SCH (12:16)
== END 2018-04-13 14:12 | DRG 453 ==
LOC: JSAMEDAYSX 06:07 → JICU 18:11 → J8W 04-08 11:45
PROVIDERS: ADMIT Orthopaedic Surgery Orthopaedic Surgery of the Spine; ATTEND Internal Medicine
PROC: 0SG10J1 Fusion of 2 or more Lumbar Vertebral Joints with Synthetic Substitute, Posterior Approach, Posterior Column, Open Approach (ICD-10-PCS; 2018-04-04)
PROC: 0QB00ZZ Excision of Lumbar Vertebra, Open Approach (ICD-10-PCS; 2018-04-04)
PROC: 0QU707Z Supplement Left Upper Femur with Autologous Tissue Substitute, Open Approach (ICD-10-PCS; 2018-04-04)
PROC: 0SG30AJ Fusion of Lumbosacral Joint with Interbody Fusion Device, Posterior Approach, Anterior Column, Open Approach (ICD-10-PCS; 2018-04-04)
PROC: 0SG10AJ Fusion of 2 or more Lumbar Vertebral Joints with Interbody Fusion Device, Posterior Approach, Anterior Column, Open Approach (ICD-10-PCS; principal; 2018-04-04 08:00)
DX: M48.062 Spinal stenosis, lumbar region with neurogenic claudication (principal); G92 Toxic encephalopathy; F11.921 Opioid use, unspecified with intoxication delirium; J98.11 Atelectasis; M40.205 Unspecified kyphosis, thoracolumbar region; N31.9 Neuromuscular dysfunction of bladder, unspecified; M54.16 Radiculopathy, lumbar region; I25.5 Ischemic cardiomyopathy; I50.9 Heart failure, unspecified; J44.9 Chronic obstructive pulmonary disease, unspecified; M43.16 Spondylolisthesis, lumbar region; E03.9 Hypothyroidism, unspecified; I25.10 Atherosclerotic heart disease of native coronary artery without angina pectoris; I11.0 Hypertensive heart disease with heart failure; E78.5 Hyperlipidemia, unspecified; Z98.61 Coronary angioplasty status
CPT/HCPCS: 36415; 36600; 70450-TC; 71045-TC-FY; 76000-TC-FY; 80048; 80053; 81003; 82803; 82962; 83735; 84100; 85025; 85027; 86850; 86900; 86901; 87040; 87086; 88304-TC; 94760; 97116-GP; 97162-GP; J0131; J1644